=== PATIENT | male | born 1955 | race Caucasian/White ===

== ENCOUNTER → 2023-07-22 13:45 | Outpatient (REF) | payer OTHER, SELFPAY | LOC: RAD 13:45 | PROVIDERS: ATTENDING PHYSICIAN Internal Medicine; FAMILY PHYSICIAN Nurse Practitioner Family | DX: Z13.6 Encounter for screening for cardiovascular disorders (principal) | CPT/HCPCS: 76770 ==

== ENCOUNTER 2024-02-05 16:57 | Inpatient (IN) | payer MEDICARE, OTHER, SELFPAY ==
[2024-02-05] VITALS (36 sets, daily range): BP systolic 125–243; BP diastolic 66–130; BMI 29.0; BMI 28.3
[2024-02-05 12:00] LABS: % Basophils 0.3 % (0-2); % Eosinophils 2.4 % (0-6); % Immature Granulocytes 0.3 % (0-0.5); % Lymphocytes 18.3 % (20.5-51.1); % Monocytes 9.3 % (1.7-9.3); % Neutrophils 69.4 % (42.2-75.2); Absolute Eosinophils 0.3 10^3/uL (0-0.7); Absolute Lymphocytes 2.1 10^3/uL (1.2-3.4); Absolute Monocytes 1.1 10^3/uL (0.1-0.6); Absolute Neutrophils 8.1 10^3/uL (1.4-6.5); Hematocrit 41.8 % (39.0-52.0); Hemoglobin 15.3 g/dL (13.0-18.0); Mean Corp Hgb Conc. 36.6 g/dL (33.0-37.0); Mean Corpuscular Hgb 30.1 pg (27.0-31.0); Mean Corpuscular Volume 82.3 fL (80.0-94.0); Mean Platelet Volume 11.4 fL (7.4-10.4); Nucleated Red Blood Cells % 0 % (-); Platelet Count 221 10^3/uL (130-400); Red Blood Cell Count 5.08 10^6/uL (4.70-6.10); Red Cell Dist. Width 12.9 % (11.5-14.5); White Blood Cell Count 11.7 10^3/uL (4.8-10.8)
[2024-02-05 12:25] LABS: ALT (SGPT) 22 U/L (0-50); AST (SGOT) 28 U/L (17-59); Albumin 4.5 g/dl (3.5-5.0); Alkaline Phosphatase 100 U/L (38-126); Blood Urea Nitrogen 16 mg/dl (9-20); Calcium 9.3 mg/dl (8.4-10.2); Carbon Dioxide 22 mmol/L (22-30); Chloride 106 mmol/L (98-107); Glucose 103 mg/dl (70-99); Potassium 3.9 mmol/L (3.5-5.1); Sodium 139 mmol/L (135-145); Total Bilirubin 1.1 mg/dl (0.2-1.3); Total Protein 6.8 g/dl (6.3-8.2); eGFR > 60.00
--- NOTE | 2024-02-05 13:17 | ED.GENMED ---
History of Present Illness
General
Chief Complaint: Blood Pressure Problem
Time Seen by Provider: 02/05/24 13:17
History of Present Illness
History of Present Illness:
HPI: The patient presents due to concerns of high blood pressure. This is associated with rather significant headaches. He had somewhat of different headache several years ago but does not normally get headaches. He did check his blood pressure
as an outpatient and also at his doctor's office you has been told that he has had high blood pressure readings but he has not been started on any medications. He had markedly elevated blood pressure at the office today and was referred here for
further evaluation. He also is a smoker.
EXAM:
GENERAL: Well appearing in no distress, the patient is markedly hypertensive with systolics of about 220
HEENT: Moist oral mucosa
CARDIOVASCULAR: No murmurs, normal heart rate, regular rhythm, No chest wall tenderness
PULMONARY: No respiratory distress, breath sounds are clear and equal
ABDOMEN: Soft with no peritoneal signs, no tenderness
NEUROLOGIC: Excellent strength all extremities, no coordination deficits
PSYCHIATRIC: Appropriate mental status, normal insight and judgement
EXTREMITIES: Nontender, no edema, moves all extremities equally
SKIN: No rash, no lesions
TIME OF INITIAL ENCOUNTER: 1:20 PM
NUMBER AND COMPLEXITY OF PROBLEMS ADDRESSED AT THE ENCOUNTER
� Chronic conditions affecting care: History of prostate cancer and history of alcohol abuse
� Acute Exacerbation and/or Progression of Chronic Illness: This is an acute problem hypertensive urgency, intracranial pathology,
� Differential Diagnosis includes: Kidney disease, hypertensive urgency, hypertensive emergency,
AMOUNT AND/OR COMPLEXITY OF DATA TO BE REVIEWED AND ANALYZED
� I performed an independent evaluation of and my interpretation is:
EKG: Sinus 57, normal axis, nonspecific ST abnormality
CT: CT head shows no acute abnormality
X-rays:
Laboratory Studies: White blood cell count 11.7, chemistries unremarkable, troponin negative
Other:
� Review of other/old records: I abdominal ultrasound showed relatively unremarkable aorta and iliacs as of July 2023
� Clinical information was obtained by an independent historian: I spoke to the at bedside
� Prescriptions/Medications Considered but not given:
� Further testing considered but not performed:
RISK OF COMPLICATIONS AND/OR MORBIDITY OR MORTALITY OF PATIENT MANAGEMENT
� Social determinants of health affecting care: Lives at home
� Discussion with other providers: Hospitalist, Dr. Santos, for admission at 3:31 PM
� Escalation of care including admission/observation vs risk of discharge considered: The patient's blood pressure is markedly elevated and has had multiple blood pressure elevation readings in the past. Will start
antihypertensives and since his blood pressure is as high as 220 systolic, will give a dose of IV hydralazine. He is a smoker and is at higher risk of CVA�will start losartan. Shortly after the IV hydralazine was given, he had a episode of chest
discomfort and shortness of breath which is since resolved. Repeat blood pressure was 219 and I therefore ordered clonidine (did not use beta-nicole as heart rate was around 60). The patient generally continues to not feel well�I have asked
hospitalist to keep for further management.
Past History
Past History
ED Past Medical History: None and Cancer (Prostatic status post treatment)
ED Past Surgical History: Orthopedic and Urological (Prostatic surgery)
Social History
Tobacco: Smoker
Alcohol: Former
Drug: None
Phy Exam
Physical Exam
Physical Exam:
See HPI
Course
Orders/Labs/Results
Orders:
Orders
02/05/24 11:46
Electrocardiogram (*1) Urgent
Reason for Study: Hypertension, Benign
EKG- Treatment ONCE
02/05/24 11:55
Complete Blood Count/With Diff Urgent
Comprehensive Metabolic Panel Urgent
02/05/24 13:26
CT Head W/o Iv Contrast Urgent
Comment:
Reason For Exam: new HAs w/ severe HTN (SBP 220)
HydrALAZINE [Apresoline] 10 mg IV NOW STA
Losartan [Cozaar] 50 mg PO NOW STA
02/05/24 14:28
EKG [Electrocardiogram (*1)] Urgent
Reason for Study: Chest Pain
02/05/24 14:29
EKG- Treatment ONCE
02/05/24 14:36
Clonidine [Catapres] 0.1 mg PO NOW STA
02/05/24 14:44
Troponin I Urgent
02/05/24 15:55
Add On- LAB Routine
Tests Added?: magnesium
Abnormal Lab Results
02/05/24
11:55
WBC 11.7 H 10^3/uL
(4.8-10.8)
MPV 11.4 H fL
(7.4-10.4)
Absolute Neuts (auto) 8.1 H 10^3/uL
(1.4-6.5)
Absolute Monos (auto) 1.1 H 10^3/uL
(0.1-0.6)
Lymphocytes % 18.3 L %
(20.5-51.1)
Glucose 103 H mg/dl
(70-99)
02/05/24 11:55
02/05/24 11:55
Vital Signs
Initial and Last Documented VS:
Initial Vital Signs
Temp Pulse Resp BP Pulse Ox
98.2 F 61 18 214/110 97
02/05/24 11:41 02/05/24 11:41 02/05/24 11:41 02/05/24 11:41 02/05/24 11:41
Last Documented Vital Signs
Temp Pulse Resp BP Pulse Ox
98.2 F 70 16 180/116 97
02/05/24 11:41 02/05/24 15:45 02/05/24 15:45 02/05/24 15:30 02/05/24 15:45
*Critical Care Note
Total Time (30-74mins, 75-104mins- exclusive of procedures): 45 minutes
comment:
The patient has general unwell feeling including headache. Systolic blood pressures are markedly elevated. We initially gave him hydralazine and shortly after the IV hydralazine was given, was 'gasping for air'. Blood pressure remains elevated.
He was also given oral losartan and clonidine.
ED Attending Note
-
Portions of this chart may have been created with voice recognition software.� Occasional wrong word or��sound alike� substitutions may have occurred due to the inherent limitations of voice recognition software.
Discharge Plan
Departure
Patient Disposition: Admit
Date of Disposition: 02/05/24
Time of Disposition: 15:32
Presentation/result/management discussed w/ accepting MD/DO: Hospitalist
Discharge Problem:
Poor high blood pressure control
Prescriptions:
No Action
acetaminophen [Tylenol Extra Strength] 500 MG tablet
1,000 mg PO PRN PRN (Reason: pain)
naproxen sodium [Aleve] 220 MG tablet
440 mg PO BIDPRN PRN (Reason: pain) Qty: 0 0RF
carbamazepine 200 MG tablet
200 mg PO BID Qty: 60 0RF
Referrals:
Lolly Iqbal CRNP [Family Provider] -
Interventions
Interventions:
*Risk Screen - Suicide Last Done: 02/05/24 11:41
*General Assessment Last Done: 02/05/24 11:41
*Neglect/Abuse Screening Last Done: 02/05/24 11:41
ED- Fall Risk Assessment Last Done: 02/05/24 12:51
*ED COVID-19 Vaccine History Last Done: 02/05/24 12:52
ED- Cardiac Assessment Last Done: 02/05/24 12:52
ED- Neurological Assessment Last Done: 02/05/24 12:52
ED- Pulmonary Assessment Last Done: 02/05/24 12:52
Discharge Date and Time
Print Language: CITIZEN OF [place]
[2024-02-05] MEDS: APRESOLINE 10 MG IV (13:37)
[2024-02-05] MEDS: COZAAR 50 MG PO (13:37)
[2024-02-05] MEDS: CATAPRES 0.1 MG PO (14:40)
[2024-02-05 15:21] LABS: Troponin I < 0.012 ng/ml
--- NOTE | 2024-02-05 15:49 | HPS.HSE ---
Family Physician
-
Family Physician: RYAN Zuluaga
Chief Complaint
-
high blood pressure
History of Present Illness
Mr. Laureano Partida is a 68 yo man with hx prostate CA sent from PCP for elevated blood pressures at the office. He states that he started feeling unwell 2 weeks ago. He felt off with frontal headache. He thought he had a sinus infection. +
congestion and intermittent cough. No fevers. He checked his blood pressure at home with his 's machine and it was in the 200's. He didn't seek medical attention until today when he saw his PCP who sent him to the ER. Patient has had normal
blood pressure readings at prior recent clinic visits within past couple of years.
He reports chest heaviness yesterday and he took aspirin. He also had chest discomfort after given IV hydralazine in the ER and that is now resolved. He also received Losartan and Clonidine. He states he feels weaker than when he came in and a
little lightheaded.
No shortness of breath. No LE swelling. No rash. Eating and drinking OK. He has not started any new medications. No new supplements. No drug use. He smokes 1/2 pack per day and now wants to stop.
Medical History
Past Medical History
Past Medical History: Reports Hypercholesterolemia
Past Surgical History: Reports Urological
Social History
Tobacco: Smoker (1/2 pack per day)
Family History
Family History: Not pertinent
Allergies / Home Medications
Allergies reflects when Allergies were last updated in [employer].
Home Medications with original date entered in [employer]
Allergy/Medication List:
Allergies
Allergy/AdvReac Type Severity Reaction Status Date / Time
Penicillins Allergy Unknown Verified 02/05/24 11:41
Home Medications
acetaminophen 500 mg tablet (Tylenol Extra Strength) 1,000 mg PO Q6HPRN PRN mild pain 06/05/15
ascorbic acid (vitamin C) 500 mg tablet (Vitamin C) 500 mg PO DAILY 02/05/24
atorvastatin 10 mg tablet 10 mg PO HS 02/05/24
cholecalciferol (vitamin D3) 50 mcg (2,000 unit) tablet (Vitamin D3) 50 mcg PO DAILY 02/05/24
cyanocobalamin (vitamin B-12) 1,000 mcg tablet 1,000 mcg PO DAILY 02/05/24
glucosamine sulfate 500 mg tablet (Glucosamine) 500 mg PO DAILYPRN PRN supplement 02/05/24
zinc sulfate 50 mg zinc (220 mg) tablet 50 mg PO DAILY 02/05/24
Review of Systems
-
History Source: Patient
A 12 point ROS was completed and negative except as noted: Yes
Physical Exam
Vital Signs
Vital Signs
Temp Pulse Resp BP Pulse Ox
98.2 F 63 19 219/105 98
02/05/24 11:41 02/05/24 14:40 02/05/24 13:45 02/05/24 14:40 02/05/24 14:15
Physical Exam
General: No Apparent Distress
HEENT: PERRLA (scleral erythema; LIBBY, EOMI)
Respiratory: Clear; No Wheezes
Cardiac: S1/S2 and Regular Rhythm
GI: Soft and Non Tender
Musculoskeletal: No Edema
Skin: Warm and Dry; No Rash
Neuro: AO x 3
Psych: Calm
Laboratory Results
-
02/05/24 11:55
02/05/24 11:55
Laboratory Results
Total Bilirubin 1.1 mg/dl (0.2-1.3) 02/05/24 11:55
AST 28 U/L (17-59) 02/05/24 11:55
ALT 22 U/L (0-50) 02/05/24 11:55
Alkaline Phosphatase 100 U/L (38-126) 02/05/24 11:55
Troponin I < 0.012 ng/ml 02/05/24 14:44
Data Reviewed
-
Diagnostic Radiology: Report Reviewed by me
Lab Data: Labs Reviewed by me
Impression/Plan
-
Mr. Laureano Partida is a 68 yo man with hx prostate CA sent from PCP for elevated blood pressures at the office. He was found to have BP 214/110 associated with headache, admitted for hypertensive urgency and work up of secondary hypertension.
Triage VS: T 98.2, P 61, RR 18, BP 214/110, SpO2 97%
LABS: WBC 11.7, Hg 15.3, PLT 221, Na 139, K+ 3.9, Cl 106, CO2 22, BUN 16, Cr 1.1, Glucose 103, T. Bili 1.1, AST 28, ALT 22, Alk Phos 100, Trop < 0.012
EKG: NSR with PAC's, incomplete RBBB, prolonged QTc [address]
IMPRESSION:
No acute intracranial abnormality.
MAR: Clonidine, Hydralazine and Losartan 50mg
Hypertensive Urgency
-s/p IV hydralazine 10mg , Losartan 50mg and Clonidine 0.1mg in ER
-patient reported shortness of breath and chest pain post Hydralazine that is now resolved
-admit to telemetry
-trend Troponin
-will avoid further standing BP meds this evening as he has already dropped 25%
-standing Losartan starting tomorrow morning
-Clonidine PRN SBP > 180
-trial of Compazine for headache
-TTE
-Nephrology consult for further work up of secondary hypertension
-I have ordered renin/aldosterone ratio
-with report of intermittent chest discomfort may need outpatient cardiac stress testing (or more immediate work-up if recurs in the hospital).
HLD
-ASSISTANT GM OF CONTENT & DELIVERY Statin
DVT PPx Lovenox subQ
FULL CODE
76 minutes spent on patient evaluation, medical deicison making, coordination of care
[2024-02-05] MEDS: COMPAZINE 10 MG IV (16:21)
[2024-02-05] MEDS: REFRESH EYE DROPS (PF) 1 DROPS BOTH EYES (16:25)
--- NOTE | 2024-02-05 16:38 | W.CON.NEPH ---
Consultation
-
Date/Time Consultation Requested: 02/05/24 1630
Date/Time Consultation Performed: 02/05/24 1730
Requesting Provider: Jannie Pulido
Performing Provider: Brigida Duran
Reason for Consultation: HTN urgency
Medical History
-
Chief Complaint: HTN, HERRERA
History of Present Illness:
Mr. Laureano Partida is a 68 yo man with hx prostate CA, ED, HLD on low dose statin was sent from PCP for elevated blood pressures from the office. He states that he started feeling unwell 2-3 weeks ago. He felt off with frontal headache. He thought
he had a sinus infection. + congestion and intermittent cough. No fevers. He checked his blood pressure at home with his 's machine and it was in the 200's. He didn't seek medical attention until today when he saw his PCP who sent him to the
ER. Patient has had normal blood pressure readings at prior recent clinic visits within past couple of years, in Dec visit was high and he reports with orthopaedic visit 6m ago was also high 160s.
He reports chest heaviness yesterday and he took aspirin. He also had chest discomfort after given IV hydralazine in the ER and that is now resolved. He received Losartan and Clonidine. He states he feels weaker than when he came in and a little
lightheaded which present even SERVICES CLERK. SBP now at 190s.
No shortness of breath. No LE swelling. No rash. Eating and drinking OK. He was taking tylenol and high doses of Ibuprofen for HAs. No drug use. He smokes 1/2 pack per day for several years. Mild nausea here, no vomiting or sweating. NO
dysuria. He does not particularly follow low salt diet.
Past Medical History
Prostate ca
ED
HLD
colon polyps
PTSD
colitis
h/o HAs
Past Surgical History: Orthopedic (knee arthrocopy) and Urological (prostate surg)
Social History
Tobacco: Smoker (1/2 Pack daily)
Alcohol: None
Drug: None
Personal:
Living: With Family
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
Family History
no CKD
Family History: Not Pertinent
Allergies / Home Medications
Allergy/AdvReac Type Severity Reaction Status Date / Time
Penicillins Allergy Unknown Verified 02/05/24 11:41
�Medication �Instructions �Recorded �Confirmed �Type
acetaminophen 500 mg tablet 1,000 mg PO Q6HPRN PRN mild pain 06/05/15 02/05/24 History
(Tylenol Extra Strength)
ascorbic acid (vitamin C) 500 mg 500 mg PO DAILY 02/05/24 02/05/24 History
tablet (Vitamin C)
atorvastatin 10 mg tablet 10 mg PO HS 02/05/24 02/05/24 History
cholecalciferol (vitamin D3) 50 50 mcg PO DAILY 02/05/24 02/05/24 History
mcg (2,000 unit) tablet (Vitamin
D3)
cyanocobalamin (vitamin B-12) 1,000 mcg PO DAILY 02/05/24 02/05/24 History
1,000 mcg tablet
glucosamine sulfate 500 mg tablet 500 mg PO DAILYPRN PRN supplement 02/05/24 02/05/24 History
(Glucosamine)
zinc sulfate 50 mg zinc (220 mg) 50 mg PO DAILY 02/05/24 02/05/24 History
tablet
Review of Systems
-
All complete 12 point ROS have been inquired and found negative other than stated in HPI
Physical Exam
Vital Signs
Vital Signs
Temp Pulse Resp BP Pulse Ox
98.6 F 61 14 164/115 98
02/05/24 16:00 02/05/24 16:00 02/05/24 16:00 02/05/24 16:00 02/05/24 16:00
Lab Results
WBC 11.7 10^3/uL (4.8-10.8) H 02/05/24 11:55
RBC 5.08 10^6/uL (4.70-6.10) 02/05/24 11:55
Hgb 15.3 g/dL (13.0-18.0) 02/05/24 11:55
Hct 41.8 % (39.0-52.0) 02/05/24 11:55
Plt Count 221 10^3/uL (130-400) 02/05/24 11:55
Sodium 139 mmol/L (135-145) 02/05/24 11:55
Potassium 3.9 mmol/L (3.5-5.1) 02/05/24 11:55
Chloride 106 mmol/L (98-107) 02/05/24 11:55
Carbon Dioxide 22 mmol/L (22-30) 02/05/24 11:55
BUN 16 mg/dl (9-20) 02/05/24 11:55
Creatinine 1.1 mg/dL (0.7-1.3) 02/05/24 11:55
eGFR > 60.00 02/05/24 11:55
Glucose 103 mg/dl (70-99) H 02/05/24 11:55
Calcium 9.3 mg/dl (8.4-10.2) 02/05/24 11:55
Albumin 4.5 g/dl (3.5-5.0) 02/05/24 11:55
EKG initially: SINUS BRADYCARDIA
POSSIBLE LEFT ATRIAL ENLARGEMENT
INCOMPLETE RIGHT BUNDLE BRANCH BLOCK
NONSPECIFIC T WAVE ABNORMALITY
ABNORMAL ECG
WHEN COMPARED WITH ECG OF 03-JUN-2015 07:01,
NONSPECIFIC T WAVE ABNORMALITY NOW EVIDENT IN INFERIOR LEADS
NONSPECIFIC T WAVE ABNORMALITY NOW EVIDENT IN LATERAL LEADS
Physical Exam
General: Awake, Alert, Oriented, AOx3 and No Distress
HEENT: EOMI, Anicteric, Conjunctivae Clear, Neck Supple and No JVD
Respiratory: Clear, Normal Excursion and Nonlabored Respirations
Cardiac: S1/S2 and Regular Rate/Rhythm
Breast: Deferred by me
Abdomen: Soft, Nontender and Nondistended
Musculoskeletal: No Cyanosis and No Edema
Skin: No Rash
Neuro: Nonfocal/Grossly Intact
Psych: Mood/afflect pleasant, Insight/judgement good and Appropriate
Data Reviewed
-
Radiology: Report Reviewed by me and Discussed with Patient
Labs: Labs Reviewed by me, Discussed with Nurse and Discussed with Patient
Assessment/Plan
-
IMP:
Hypertensive Urgency
HLD
h/p prostate ca
HERRERA
PTSD
h/o colitis
Plan:
A/w recent onset of BP and HERRERA with no h//o HTN
HTN urgency-probably symptomatic with HERRERA
s/p Losartan, clonidine
avoid drastic BP changes, SBP goal to keep over 160 today
nicardine gtt to start per primary
had SOB, CP post hydralazine
agree with starting Losartan tomorrow -titrate dose as needed
may need procardia vs diuretic to add if needed
ARR Ordered per primary
will check renal duplex specially with smoking history., symmetric kidneys in July Aorta US
his cr is 1.1 with in normal range
avoid NSAIDs and quit smoking -d/w pt
d/w nursing
d/w primary
[2024-02-05 17:11] LABS: Magnesium 2.1 mg/dl (1.6-2.3)
[2024-02-05] MEDS: CARDENE 200 IV (18:40)
[2024-02-05 19:12] LABS: INR 1.05; PT 13.7 Sec (11.4-14.6)
--- NOTE | 2024-02-05 19:18 | PTCARENOTE ---
received pt from telem floor , pt NSR on monitor , BP 182/ 100 , pt started on IV Cardene as ordered , pt is currently at 2.5mg his current BP in 162/86, his and daughter in room and updated on plan of care and condition
[2024-02-05 19:26] LABS: Troponin I 0.018 ng/ml
[2024-02-05] MEDS: LOVENOX 40 MG SC (20:28)
[2024-02-05] MEDS: REFRESH EYE DROPS (PF) 1 DROPS OPHTH (20:29)
[2024-02-05] MEDS: LIPITOR 10 MG PO (20:29)
--- NOTE | 2024-02-05 21:00 | PTCARENOTE ---
Resumed care of pt this evening. Received pt on cardene gtt infusing at 2.5 mg/hr via left peripheral IV site. Pt A&Ox3, can move all 4 extremities, and can make needs known. Pt is NSR on tele monitor, has no edema, and palpable pedal pulses. Pt on
RA satting at 96% pulse ox. On auscultation pt lungs sound clear. Pt's abdomen is round, soft, and has active BS. Pt's skin is C/D/I.
--- NOTE | 2024-02-05 22:00 | PTCARENOTE ---
Cardene gtt turned off per protocol.
[2024-02-05] MEDS: REFRESH EYE DROPS (PF) OPHTH (23:13)
[2024-02-06] VITALS (43 sets, daily range): BP systolic 116–190; BP diastolic 66–105; BMI 28.6
--- NOTE | 2024-02-06 04:00 | PTCARENOTE ---
Pt resting comfortably at this time. No changes to report from previous assessment.
[2024-02-06 05:57] LABS: Hematocrit 40.4 % (39.0-52.0); Hemoglobin 14.9 g/dL (13.0-18.0); Mean Corp Hgb Conc. 36.9 g/dL (33.0-37.0); Mean Corpuscular Hgb 30.1 pg (27.0-31.0); Mean Corpuscular Volume 81.6 fL (80.0-94.0); Mean Platelet Volume 11.9 fL (7.4-10.4); Platelet Count 209 10^3/uL (130-400); Red Blood Cell Count 4.95 10^6/uL (4.70-6.10)
[2024-02-06 06:08] LABS: Blood Urea Nitrogen 21 mg/dl (9-20); Calcium 9.1 mg/dl (8.4-10.2); Carbon Dioxide 21 mmol/L (22-30); Chloride 106 mmol/L (98-107); Estimated Creatinine Clearance 60 ml/min; Glucose 94 mg/dl (70-99); Magnesium 2.1 mg/dl (1.6-2.3); Potassium 3.7 mmol/L (3.5-5.1); Sodium 138 mmol/L (135-145); eGFR > 60.00
[2024-02-06 06:19] LABS: Troponin I 0.027 ng/ml
[2024-02-06 06:40] LABS: TSH 1.52 uIU/ml (0.47-4.68)
--- NOTE | 2024-02-06 07:15 | PTCARENOTE ---
VS's downloaded from previous shift [id number]
--- NOTE | 2024-02-06 07:36 | CON.INTV ---
Consultation
Consultation Request
Date/Time Consultation Requested: 02/06/2024-7 AM
Date/Time Consultation Performed: 02/06/2024-7:30 AM
Requesting Provider: Hospitalist
Performing Provider: Dr. Mckeon
Reason for Consultation: Hypertensive emergency
Medical History
-
Chief Complaint: Headache/hypertensive emergency
History of Present Illness:
68-year-old male smoker seen years ago by Dr. Cagle with a history of hyperlipidemia and prostate cancer presented with frontal headaches and severe hypertension unresponsive to hydralazine, losartan and clonidine requiring Cardene
drip-subject scientific research consulted for hypertensive emergency/critical care management 02/06/2024.Blood pressure much improved and headache is slowly resolving. He denies any shortness of breath at rest, chest pain, chest tightness, productive cough, mucus
production, abdominal pain, nausea, vomiting, diarrhea, new weakness, numbness, or leg swelling. He continues to smoke.
Past Medical History
Past Medical History: None (Colitis. Chronic headaches. GERD. Cigarette smoker. Pulmonary nodules-multiple bilateral stable for years. COPD-Gold stage I. Prostate cancer status post prostatectomy 2015. Shoulder reconstruction.)
Social History
Tobacco: Smoker (Off-and-on for 50 years-currently on for the last 6 months-1/2 pack of cigarettes daily)
Alcohol: None
Drug: None
Personal:
Living: With Family
Employment: Retired ([employer])
Occupational Exposures: No known asbestos exposure
Environmental Exposures: No known tuberculosis exposure
Family History
Family History: Other (Father-mesothelioma. Mother-melanoma)
Allergies / Home Medications
Allergies
Allergy/AdvReac Type Severity Reaction Status Date / Time
Penicillins Allergy Unknown Verified 02/05/24 11:41
Home Medications
�Medication �Instructions �Recorded �Confirmed �Last Taken �Type
acetaminophen 500 mg tablet 1,000 mg PO Q6HPRN PRN mild pain 06/05/15 02/05/24 02/05/24 History
(Tylenol Extra Strength)
ascorbic acid (vitamin C) 500 mg 500 mg PO DAILY 02/05/24 02/05/24 02/04/24 History
tablet (Vitamin C)
atorvastatin 10 mg tablet 10 mg PO HS 02/05/24 02/05/24 02/04/24 History
cholecalciferol (vitamin D3) 50 50 mcg PO DAILY 02/05/24 02/05/24 02/04/24 History
mcg (2,000 unit) tablet (Vitamin
D3)
cyanocobalamin (vitamin B-12) 1,000 mcg PO DAILY 02/05/24 02/05/24 02/04/24 History
1,000 mcg tablet
glucosamine sulfate 500 mg tablet 500 mg PO DAILYPRN PRN supplement 02/05/24 02/05/24 Unknown History
(Glucosamine)
ibuprofen 400 mg tablet 400 mg PO Q6HPRN PRN headache 02/05/24 02/05/24 Unknown History
zinc sulfate 50 mg zinc (220 mg) 50 mg PO DAILY 02/05/24 02/05/24 02/04/24 History
tablet
Review of Systems
-
Unable to Obtain full review of systems at this time due to: Other (Per HPI)
Vitals / Labs / Diagnostic Testing
Vital Signs
Temp Pulse Resp BP Pulse Ox
98.1 F 57 23 123/68 97
02/06/24 07:35 02/06/24 04:15 02/06/24 04:15 02/06/24 04:00 02/05/24 21:00
Lab Data
02/06/24 05:38
02/06/24 05:38
Laboratory Results
02/05/24
18:53
PT 13.7
INR 1.05
Diagnostic Testing:
Physical Exam
-
Exam:
Well-nourished and well-developed in no apparent distress
HEENT-atraumatic, normocephalic
Neck-supple, no JVD, no bruit
Heart-regular rate and rhythm-no murmurs, rubs or gallops
Chest-clear to auscultation, no wheezes, crackles
Back-no tenderness
Abdomen-soft, nontender, nondistended, no hepatosplenomegaly
Extremities-no cyanosis, clubbing, edema and good peripheral pulses
Integument-intact, no rashes, lesions or ecchymosis
Neurology-alert and oriented, nonfocal motor and sensory exam
Assessment
-
68-year-old male smoker seen years ago by Dr. Cagle with a history of hyperlipidemia and prostate cancer presented with frontal headaches and severe hypertension unresponsive to hydralazine, losartan and clonidine requiring Cardene
drip-subject scientific research consulted for hypertensive emergency/critical care management 02/06/2024.
Hypertensive emergency-unresponsive to hydralazine, losartan, clonidine necessitating Cardene drip
Headaches related to hypertension
Conditions present prior to admission:
Colitis.
Chronic headaches.
GERD.
Cigarette smoker.
Pulmonary nodules-multiple bilateral stable for years.
COPD-Gold stage I.
Prostate cancer status post prostatectomy 2015.
Shoulder reconstruction.
Plan
Patient will be admitted to medical intensive care
Supplemental oxygen if needed
Monitor for end organ effect of severe hypertension
Labetalol as needed
Begin nicardipine drip
Nitroprusside less attractive with potential for cyanide toxicity especially with renal insufficiency
Nitroglycerin if cardiac issues
Nephrology consultation
Consider workup of secondary causes including renal vascular/primary hyperaldosteronism/Galt's/pheochromocytoma/etc. if hypertension is difficult to control
DVT prophylaxis-on Lovenox
Early nutrition
Early mobilization
Patient was last seen in pulmonary office-Dr. Cagle 10/24/2021 and was instructed to follow back up after follow-up CT for pulmonary nodules-he never followed up-will instruct follow-up after discharge
Critical care statement: A total of 50 minutes of critical care time was provided for this patient today. This includes management of unstable vital signs, evaluation of the patient at bedside, reviewing the patient's pertinent medical records
including radiographs, management of Cardene drip, microbiology, laboratory evaluations, and discussion with primary team, consultants, pharmacy, nutrition, physical therapy, case management, charge nurse, critical care nursing, and respiratory
therapy.
Diagnostic data:
Chest x-ray 02/05/2024-NAD
CT chest 02/03/2021:Reviewed,Demonstrated multiple pulmonary nodules under 8 mmPer millimeter left major fissure�2 mm left lower lob��2 mm right lower lobe��Improved linggular right lower lobe�4 mm right upper lobe��4 mm. Facial right middle lobe�5
mm right middle lobeImproved lingular right lower lobe above the diaphragm..
CT chest 07/2021-stable tiny pulmonary nodules
CT head 02/05/2024-no acute intracranial abnormalities
PFT 10/24/2021-FEV1 3.5-103%, FVC 4.5-105%, TLC 92%, RV 69%, DLCO 62%, DLCO/VA 74%
Data Reviewed
-
PFT: Report reviewed by me
EKG: Report reviewed by me
Radiology: Report reviewed by me
CT Scan: Report reviewed by me
Medical Tests (Nuc Med, Echo etc): Report reviewed by me
Labs: Labs reviewed by me
Old Records: Reviewed
Critical Care Time (in minutes): 50
[2024-02-06] MEDS: REFRESH EYE DROPS (PF) 1 DROPS OPHTH ×3 (07:45→17:41)
[2024-02-06] MEDS: COZAAR 50 MG PO (07:45)
--- NOTE | 2024-02-06 09:31 | PTCARENOTE ---
Complete assessment done and documented. Pt oriented x3, no c/o headache at this time. BP= 175-179/85-90 this morning, keeping systolic goal 160-180 maintained. Cardene drip remains off at this time. HR SR, O2 sat=95% on R/A. Pt ate 95% of his 2 gm
Na diet breakfast. +BSs. Pt just voided 275 ml of yellow urine in urinal. Echo cardiogram being started now bedside.
[2024-02-06] MEDS: TRANDATE 5 MG IV ×2 (11:39→20:09)
--- NOTE | 2024-02-06 11:47 | PTCARENOTE ---
PRN labetalol 5mg iv given for BP 190/97. Dr Wagoner updated and in to see pt.
--- NOTE | 2024-02-06 12:12 | W.PN.NEPH.PH ---
Today's Communication / Plan
-
add procardia,c ont losartan
Assessment/Plan
-
IMP:
Hypertensive Urgency
HLD
h/p prostate ca
HERRERA
PTSD
h/o colitis
Plan:
A/w recent onset of BP and HERRERA with no h//o HTN
HTN urgency-probably symptomatic with HERRERA
off nicardine gtt since last night
will start procardia and cont Losartan
await renal duplex and ARR
avoid drastic BP changes, SBP goal to keep 140 today
monitor cr at 1.3 from 1.1, no further escalation of ARB, check UA for baseline
avoid NSAIDs and nephrotoxins
HR in 60s, sinus sandrine, normal TSH
d/w nursing
d/w primary
-
-
Date of Service: February 06, 2024
CC / HPI / ROS
-
Chief Complaint:
HTN
History of Present Illness:
cr up at 1.3, BUN 21
off nicardine gtt since last night
no fever
Review of Systems:
no cp or sob
improved HERRERA and dizziness
Labs
-
Labs:
WBC 9.0 10^3/uL (4.8-10.8) 02/06/24 05:38
RBC 4.95 10^6/uL (4.70-6.10) 02/06/24 05:38
Hgb 14.9 g/dL (13.0-18.0) 02/06/24 05:38
Hct 40.4 % (39.0-52.0) 02/06/24 05:38
Plt Count 209 10^3/uL (130-400) 02/06/24 05:38
Sodium 138 mmol/L (135-145) 02/06/24 05:38
Potassium 3.7 mmol/L (3.5-5.1) 02/06/24 05:38
Chloride 106 mmol/L (98-107) 02/06/24 05:38
Carbon Dioxide 21 mmol/L (22-30) L 02/06/24 05:38
BUN 21 mg/dl (9-20) H 02/06/24 05:38
Creatinine 1.3 mg/dL (0.7-1.3) 02/06/24 05:38
eGFR > 60.00 02/06/24 05:38
Glucose 94 mg/dl (70-99) 02/06/24 05:38
Calcium 9.1 mg/dl (8.4-10.2) 02/06/24 05:38
Albumin 4.5 g/dl (3.5-5.0) 02/05/24 11:55
Physical Exam
-
Vital Signs:
Vital Signs
Temp Pulse Resp BP Pulse Ox
98.0 F 60 18 190/97 96
02/06/24 11:53 02/06/24 11:39 02/06/24 11:15 02/06/24 11:39 02/06/24 11:15
Cardiovascular:: Regular rate and rhythm
Respiratory:: Bilateral: CTA
Lung Excursion:: Normal
Abdomen:: Nontender and Soft
Extremity Edema:: None: Bilateral:
Van Catheter: No
[2024-02-06] MEDS: PROCARDIA XL (EXTENDED RELEASE) 30 MG PO ×2 (13:12→22:28)
--- NOTE | 2024-02-06 13:17 | PTCARENOTE ---
Pt still with occ elevated BP. Dr Wagoner aware of BP trends. Prcardia XL 30 mg po given now, BP 167/89
[2024-02-06 13:39] LABS: Troponin I < 0.012 ng/ml
--- NOTE | 2024-02-06 13:46 | PTCARENOTE ---
PT OOB to bathroom, stable on feet, Pt able to brush teeth and wash. Pt now sitting in chair, BV=790/88, HR SR with PACs. Tolerating well. Pt encouraged when home to monitor his BP routinely a few times ea day. He does have a home cuff. Troponin was
drawn, results now down <0.012.
--- NOTE | 2024-02-06 13:51 | CON.CAR ---
Addendum entered and electronically signed by Jacoby Guzman MD 02/06/24 17:45:
68-year-old man admitted with hypertensive urgency and troponin of 0.027. Symptoms of headache and systolic blood pressure over 200 mmHg. Now feeling better. Some chest discomfort prior to admission, had been taking nonsteroidals, was transiently
on Cardene and has received IV labetalol.
PMH: Hyperlipidemia, prostate cancer/prostatectomy, presumed hypertension
PSH: Prostatectomy
SH: Ongoing smoker, no alcohol, , retired
FH: Noncontributory
Allergies penicillins
Current medications: Atorvastatin 10 mg at bedtime, losartan 50 mg a day, nifedipine ER 30 mg a day
167/89, pulse 62, resp rate 16, no distress, head neck exam unremarkable, lungs are clear, no obvious murmur, JVD, carotids okay, abdomen benign extremities without clubbing cyanosis or edema neuro, musculoskeletal, integumentary all intact's
Chest x-ray: NAD
ECG: Sinus rhythm left atrial enlargement incomplete right bundle branch block PAC, borderline QT
Troponin 0.028
Echo: Moderate LVH, no significant valvular heart disease EF 55-60%
Assessment:
HTN urgency
Nonsustained ventricular tachycardia
HLD
Prostate CA s/p prostatectomy 2015
Tobacco use
Pulmonary nodules
PTSD
Plan:
He presented with hypertensive urgency with a detectable troponin. Currently, blood pressure is still above target but much better than admission and he is no longer symptomatic. He is no longer on Cardene and has not received further clonidine or
further labetalol current regimen is losartan 50 mg daily and nifedipine XL 30 mg daily.
Antihypertensives to be titrated while in hospital and then further fine-tuned as needed as outpatient.
He had an episode of nonsustained VT and 1 troponin was detectable. He will need an outpatient sestamibi study. He had moderate LVH on echo and so imaging is required. Given his risk profile and detectable troponin, will add aspirin 81 mg daily
in a.m. until stress test has been performed.
Would like to add a beta-nicole if heart rate will tolerate, will follow for now.
Original Note:
Consultation
Consultation Request
Date/Time Consultation Performed: 02/06/24
Requesting Provider: Dr. Pérez
Performing Provider: Elizabeth Ann PA-C for Dr. AMA Guzman
Reason for Consultation: HTN urgency
Medical History
-
Chief Complaint: headaches
History of Present Illness:
Patient is a 68-year-old male with past medical history of hyperlipidemia, prostate cancer status post prostatectomy, ongoing tobacco use who presented to emergency room due to complaints of headaches over the last several weeks. He reports
headaches were mostly above his eyes, and had some pain in his neck as well. He initially thought he had allergies or a sinus infection. He had taken his blood pressure at home which she reports showed a systolic in the 200s. He was then seen by
his primary and sent to the ER. On arrival blood pressures were noted to be significantly elevated. He had been taking NSAIDs at tylenol at home for headaches. He reported some chest heaviness at home yesterday and took asa. He was given IV
hydralazine in ER and felt SOB and chest heaviness. Also given losartan and clonidine. He was then started on cardene. Weaned off cardene this AM. Required 1 dose of IV labetalol 5mg. currently on losartan and procardia. He reports prior elevated
BPs were felt to be due to white coat hypertension. trops within normal range.
PMH:
HLD
Prostate CA s/p prostatectomy
Tobacco use
Past Medical History
Past Medical History: Other (in HPI)
Social History
Tobacco: Smoker
Alcohol: None
Personal:
Living: With Family
Employment: Retired
Family History
Family History: Reviewed & Not Pertinent
Allergies / Home Medications
Allergy/AdvReac Type Severity Reaction Status Date / Time
Penicillins Allergy Unknown Verified 02/05/24 11:41
�Medication �Instructions �Recorded �Confirmed �Type
acetaminophen 500 mg tablet 1,000 mg PO Q6HPRN PRN mild pain 06/05/15 02/05/24 History
(Tylenol Extra Strength)
ascorbic acid (vitamin C) 500 mg 500 mg PO DAILY Supplement 02/05/24 02/05/24 History
tablet (Vitamin C)
atorvastatin 10 mg tablet 10 mg PO HS High Cholesterol 02/05/24 02/05/24 History
cholecalciferol (vitamin D3) 50 50 mcg PO DAILY Supplement 02/05/24 02/05/24 History
mcg (2,000 unit) tablet (Vitamin
D3)
cyanocobalamin (vitamin B-12) 1,000 mcg PO DAILY Supplement 02/05/24 02/05/24 History
1,000 mcg tablet
glucosamine sulfate 500 mg tablet 500 mg PO DAILYPRN PRN supplement 02/05/24 02/05/24 History
(Glucosamine)
ibuprofen 400 mg tablet 400 mg PO Q6HPRN PRN headache 02/05/24 02/05/24 History
zinc sulfate 50 mg zinc (220 mg) 50 mg PO DAILY Supplement 02/05/24 02/05/24 History
tablet
Review of Systems
-
History Source: Patient and Family
All other systems: Negative unless noted
Physical Exam
Vital Signs
Temp Pulse Resp BP Pulse Ox
98.0 F 62 15 167/89 96
02/06/24 11:53 02/06/24 13:12 02/06/24 13:00 02/06/24 13:12 02/06/24 13:00
Lab Results
02/06/24 05:38
02/06/24 05:38
Troponin I < 0.012 ng/ml D 02/06/24 12:47
Physical Exam
General: No Apparent Distress, Comfortable and Other (sitting in chair)
HEENT: Normocephalic, Anicteric and Moist Mucous Membranes
Respiratory: Clear and Non Labored Respirations
Cardiac: S1/S2 and Regular Rhythm
GI: Soft, Non Tender, Non Distended and Normal Bowel Sounds
Musculoskeletal: No Clubbing, No Cyanosis and No Edema
Skin: Warm and Dry
Neuro: AO x 3
Impression / Plan
-
Primary Club Waiter/Waitress: None prior to admission
Assessment:
Presentation with headaches
HTN urgency
HLD
Prostate CA s/p prostatectomy 2015
Tobacco use
Pulmonary nodules
ECHO 02/06/24: pending
Plan:
-Patient presented with headaches for ~2 weeks. with hypertensive urgency on arrival to ER
-BPs improving on losartan 50mg daily, nifedipine 30mg daily. did require IV labetalol earlier today as was transitioned off cardene, however unclear if will be able to go on standing dose given relative bradycardia at baseline - HRs 40-60s by
review of tele. slowly bring BP down
-head CT and CXR without acute abnormality.
-renal artery US pending
-echo pending
-Cr up slightly to 1.3 today from 1.1. nephro following. UA negative
-avoid NSAIDs
-TSH WNL
-smoking cessation
-EKG SR with incomplete RBBB and NSSTS. trops within normal range
-consideration for OP ischemic evaluation as reported some chest heaviness yesterday in setting of elevated BP and with risk factors. no chest discomfort today.
-d/w nursing. d/w family at bedside
Data Reviewed
-
EKG: Tracing Personally Visualized and interpreted
Radiology: Report Reviewed by me
CT Scan: Report Reviewed by me
Medical Tests (Nuc Med, Echo etc): Report Reviewed by me
Labs: Labs Reviewed by me
Old Records: Reviewed
--- NOTE | 2024-02-06 14:03 | W.PN.HOSP.TC ---
Today's Communication/Plan
-
Cardio consult
Assessment / Plan
Assessment / Plan
Mr. Laureano Partida is a 68 yo man with hx prostate CA sent from PCP for elevated blood pressures at the office. He was found to have BP 214/110 associated with headache, admitted for hypertensive urgency and work up of secondary hypertension.
Triage VS: T 98.2, P 61, RR 18, BP 214/110-->167/89, SpO2 97%
LABS: WBC 11.7-->9.0, Hg 15.3, PLT 221, Na 139, K+ 3.9, Cl 106, CO2 22, BUN 16, Cr 1.1, Glucose 103, T. Bili 1.1, AST 28, ALT 22, Alk Phos 100, Trop < 0.012
EKG: NSR with PAC's, incomplete RBBB, prolonged QTc [address]
IMPRESSION:
No acute intracranial abnormality.
MAR: Clonidine, Hydralazine and Losartan 50mg
Hypertensive Urgency
-s/p IV hydralazine 10mg , Losartan 50mg and Clonidine 0.1mg in ER
-patient reported shortness of breath and chest pain post Hydralazine that is now resolved
-admit to telemetry
- Troponin peaked 0.027
-will avoid further standing BP meds this evening as he has already dropped 25%
-standing Losartan, Procardia XL added by nephro
-Clonidine PRN SBP > 180
-trial of Compazine for headache
-TTE
-Nephrology consult for further work up of secondary hypertension
renin/aldosterone ratio
-EKG 02/04: SINUS BRADYCARDIA
POSSIBLE LEFT ATRIAL ENLARGEMENT
INCOMPLETE RIGHT BUNDLE BRANCH BLOCK
NONSPECIFIC T WAVE ABNORMALITY
ABNORMAL ECG
WHEN COMPARED WITH ECG OF 03-JUN-2015 07:01,
NONSPECIFIC T WAVE ABNORMALITY NOW EVIDENT IN INFERIOR LEADS
NONSPECIFIC T WAVE ABNORMALITY NOW EVIDENT IN LATERAL LEADS
HLD
-SALESPERSON ART OBJECTS Statin
DVT PPx Lovenox subQ
with mild Trop leak and abn EKG, will consult cardio. Pt's has seen [facility] in past and they request his group
FULL CODE
Consider transfer OOICU pending BP and symptoms
Anticipated Discharge: 24 - 48 hours
Subjective/Interval History
-
Date of Service: February 06, 2024
States he felt like his head was going to explode when he first came in, now doing much better
Objective Data
-
Labs:
Laboratory Results
02/06/24
05:38
WBC 9.0
Hgb 14.9
Hct 40.4
Plt Count 209
Sodium 138
Potassium 3.7
Chloride 106
Carbon Dioxide 21 L
BUN 21 H
Creatinine 1.3
Glucose 94
Calcium 9.1
Vital Signs:
Vital Signs
Temp Pulse Resp BP Pulse Ox
98.0 F 62 15 167/89 96
02/06/24 11:53 02/06/24 13:12 02/06/24 13:00 02/06/24 13:12 02/06/24 13:00
I&O
02/05/24 02/06/24 02/07/24
06:59 06:59 06:59
Intake Total 350 / 350
Output Total 275 / 275
Balance 75 / 75
Review of Systems
-
History Source: Patient and Family ( and dgt in room)
Constitutional: Denies Fever
EENT: Reports No Symptoms Reported
Respiratory: Reports No Symptoms; Denies Cough
Cardiac: Reports No Symptoms; Denies Chest Pain
Abdomen/GI: Reports No Symptoms
Genitourinary: Reports No Symptoms
Musculoskeletal: Reports No Symptoms
Neuro: Denies Headache (resolved)
Physical Exam
-
General: Well Developed, Well Nourished and No Apparent Distress
HEENT: Normocephalic, Atraumatic and Moist Mucous Membranes
Respiratory: Clear to Auscultation; Negative Wheezes, Rales or Rhonchi
Cardiac: Regular Rhythm and S1/S2
GI: Soft, Nontender and Nondistended
Musculoskeletal: No Clubbing, No Cyanosis and No Edema
Neuro: Awake, Alert and Oriented
Psych: Calm
[2024-02-06] MEDS: TYLENOL 1000 MG PO (15:57)
--- NOTE | 2024-02-06 16:17 | PTCARENOTE ---
Addendum entered by Rose Monte RN 02/06/24 17:25:
pt had an 11 beat of 'VT', asymptomatic
Original Note:
Pt back to bed, while resting, pt had an 11 beat of SVT, asymptomatic. Elizabeth Ann, [employer] updated and shown strip. No change in tx at this time. BP 139/82. Tylenol 1000mg po given prn for L chronic shoulder pain.
[2024-02-06] MEDS: LOVENOX 40 MG SC (17:40)
[2024-02-06 18:04] LABS: Urine Albumin Negative (Neg - Trace); Urine Bilirubin Negative (Negative); Urine Character Clear (Clear); Urine Color Yellow; Urine Glucose Negative (Negative); Urine Ketone Negative (Negative); Urine Leukocyte Negative (Negative); Urine Nitrite Negative (Negative); Urine Occult Blood Negative (Negative); Urine Urobilinogen Negative (Neg - 1+)
--- NOTE | 2024-02-06 18:19 | PTCARENOTE ---
Pt walked the whole perimeter of ICU/IMU, with this RN and portable monitor, tolerated well. Now back OOB to chair. Pt seen by Dr AMA Guzman.
--- NOTE | 2024-02-06 20:00 | PTCARENOTE ---
Resumed care of pt this evening. Received pt A&Ox3, moves all 4 extremities, and can make needs known. Pt is in NSR on tele monitor, has trace edema on B/L lower extremities, and has palpable pedal pulses. Pt on RA satting at 95% pulse ox. On
auscultation pt lungs sound diminished at the bases but is otherwise clear. Pt's abdomen is round, soft, and has +BS. Pt voiding yellow colored urine in urinal. Skin is C/D/I.
--- NOTE | 2024-02-06 22:00 | PTCARENOTE ---
PRN dose of labetalol administered by this RN for elevated BP. Pt c/o new trace edema on B/L lower extremities, and a mild headache.
[2024-02-06] MEDS: LIPITOR 10 MG PO (22:28)
[2024-02-07] VITALS (32 sets, daily range): BP systolic 118–203; BP diastolic 78–107; BMI 28.6
[2024-02-07] MEDS: REFRESH EYE DROPS (PF) OPHTH (00:36)
[2024-02-07] MEDS: TRANDATE 5 MG IV ×4 (03:30→21:21)
--- NOTE | 2024-02-07 05:00 | PTCARENOTE ---
Pt requiring additional PRN labetalol dose for elevated BP.
[2024-02-07 05:59] LABS: Hematocrit 41.1 % (39.0-52.0); Mean Corp Hgb Conc. 36.5 g/dL (33.0-37.0); Mean Corpuscular Hgb 30.8 pg (27.0-31.0); Mean Corpuscular Volume 84.4 fL (80.0-94.0); Mean Platelet Volume 11.9 fL (7.4-10.4); Platelet Count 197 10^3/uL (130-400); Red Blood Cell Count 4.87 10^6/uL (4.70-6.10); Red Cell Dist. Width 12.9 % (11.5-14.5); White Blood Cell Count 8.8 10^3/uL (4.8-10.8)
[2024-02-07 06:22] LABS: Blood Urea Nitrogen 21 mg/dl (9-20); Carbon Dioxide 21 mmol/L (22-30); Chloride 106 mmol/L (98-107); Estimated Creatinine Clearance 60 ml/min; Glucose 103 mg/dl (70-99); Potassium 3.6 mmol/L (3.5-5.1); Sodium 140 mmol/L (135-145); eGFR > 60.00
--- NOTE | 2024-02-07 07:39 | W.PN.INTV ---
Today's Communication / Plan
Recommendations
Wean Cardene
Oral antihypertensives
Nephrology and cardiology evaluation ongoing
Transfer out of ICU-call pulmonary if respiratory issues arise
Assessment
-
68-year-old male smoker seen years ago by Dr. Cagle with a history of hyperlipidemia and prostate cancer presented with frontal headaches and severe hypertension unresponsive to hydralazine, losartan and clonidine requiring Cardene
drip-associate programmer analyst consulted for hypertensive emergency/critical care management 02/06/2024.
Hypertensive emergency-unresponsive to hydralazine, losartan, clonidine necessitating Cardene drip
Headaches related to hypertension
Nonsustained ventricular tachycardia
Conditions present prior to admission:
Colitis.
Chronic headaches.
GERD.
Cigarette smoker.
Pulmonary nodules-multiple bilateral stable for years.
COPD-Gold stage I.
Prostate cancer status post prostatectomy 2015.
Shoulder reconstruction.
Plan
Hemodynamics have improved-still quite hypertensive
Supplemental oxygen if needed
Incentive spirometry
Continue to monitor for end organ effect of severe hypertension
Labetalol as needed
Cardene drip wean
Nitroprusside less attractive with potential for cyanide toxicity especially with renal insufficiency
Nitroglycerin if cardiac issues
Nephrology consultation
Consider workup of secondary causes including renal vascular/primary hyperaldosteronism/[place]'s/pheochromocytoma/etc. if hypertension is difficult to control
Troponin trend
Cardiology evaluation noted-correspondence reviewed
Patient will need outpatient sestamibi study
Aspirin added
Beta-nicole would like to be added as well
DVT prophylaxis-on Lovenox
Nutrition
Begin ambulation
If patient able to be weaned off Cardene and hemodynamics improved then transfer out of ICU-call pulmonary if respiratory issues arise
Patient was last seen in pulmonary office-Dr. Cagle 10/24/2021 and was instructed to follow back up after follow-up CT for pulmonary nodules-he never followed up-will instruct follow-up after discharge
Critical care statement: A total of 38 minutes of critical care time was provided for this patient today. This includes management of unstable vital signs, evaluation of the patient at bedside, reviewing the patient's pertinent medical records
including radiographs, management of Cardene drip, microbiology, laboratory evaluations, and discussion with primary team, consultants, pharmacy, nutrition, physical therapy, case management, charge nurse, critical care nursing, and respiratory
therapy.
Diagnostic data:
Chest x-ray 02/05/2024-NAD
CT chest 02/03/2021:Reviewed,Demonstrated multiple pulmonary nodules under 8 mmPer millimeter left major fissure�2 mm left lower lob��2 mm right lower lobe��Improved linggular right lower lobe�4 mm right upper lobe��4 mm. Facial right middle lobe�5
mm right middle lobeImproved lingular right lower lobe above the diaphragm..
CT chest 07/2021-stable tiny pulmonary nodules
CT head 02/05/2024-no acute intracranial abnormalities
PFT 10/24/2021-FEV1 3.5-103%, FVC 4.5-105%, TLC 92%, RV 69%, DLCO 62%, DLCO/VA 74%
Subjective Dataa
Subjective Data
Date of Service:
Date of Service: February 07, 2024
Chief Complaint: Plastics Process Hand Follow Up and Pulmonary Follow Up
Subjective:
Complains of headache returning, no complaints of shortness of breath, chest pain, chest congestion, productive cough, abdominal pain, nausea, vomiting, weakness, or leg swelling
Review of Systems
General: Other (Per HPI)
Objective Data
Data Reviewed
Vital Signs / I&O / Oxygen:
Vital Signs
Temp Pulse Resp BP Pulse Ox
98.3 F 59 17 166/92 95
02/07/24 05:41 02/07/24 05:45 02/07/24 05:45 02/07/24 05:30 02/07/24 05:45
Intake and Output
02/06/24 02/07/24 02/08/24
06:59 06:59 06:59
Intake Total 1200 / 1200
Output Total 2275 / 2275
Balance -1075 / -1075
SaO2 95
Physical Exam
General: Respiratory Distress (n) and Comfortable
HEENT: Normocephalic, Anicteric and Moist Mucous Membranes
Cardiovascular: Regular Rhythm
Respiratory: Wheeze (n), Crackles (n), Rhonchi (n), Non-Labored Respirations, Accessory Resp Muscle Use (n) and Stridor (n)
GI: Soft, Non Distended and Non Tender
Neurology: Awake, Alert and No Motor Deficits
Skin: Warm, Good Color, Cyanosis (n), Jaundice (n) and Rash (n)
Labs/Micro/Reports
Lab Data
02/07/24 05:40
02/07/24 05:40
[2024-02-07] MEDS: REFRESH EYE DROPS (PF) 1 DROPS OPHTH ×4 (07:59→19:50)
[2024-02-07] MEDS: COZAAR 50 MG PO (07:59)
[2024-02-07] MEDS: PROCARDIA XL (EXTENDED RELEASE) 30 MG PO ×2 (07:59→19:50)
[2024-02-07] MEDS: TYLENOL 1000 MG PO ×2 (08:03→21:21)
--- NOTE | 2024-02-07 09:04 | W.PN.NEPH.PH ---
Today's Communication / Plan
-
change arb
Assessment/Plan
-
IMP:
Hypertensive Urgency
HLD
h/p prostate ca
HERRERA
PTSD
h/o colitis
Plan:
check metanephrines/catecholamines
change to full dose valsartan
continue procardia
eventual beta nicole, can increase CCB if pulse slow
follow BMP
-
-
Date of Service: February 07, 2024
CC / HPI / ROS
-
Chief Complaint:
HTN
History of Present Illness:
cr stable at 1.3, BUN 21
off nicardine gtt
BP in the 160s
no fever
Review of Systems:
no cp or sob
Labs
-
Labs:
WBC 8.8 10^3/uL (4.8-10.8) 02/07/24 05:40
RBC 4.87 10^6/uL (4.70-6.10) 02/07/24 05:40
Hgb 15.0 g/dL (13.0-18.0) 02/07/24 05:40
Hct 41.1 % (39.0-52.0) 02/07/24 05:40
Plt Count 197 10^3/uL (130-400) 02/07/24 05:40
Sodium 140 mmol/L (135-145) 02/07/24 05:40
Potassium 3.6 mmol/L (3.5-5.1) 02/07/24 05:40
Chloride 106 mmol/L (98-107) 02/07/24 05:40
Carbon Dioxide 21 mmol/L (22-30) L 02/07/24 05:40
BUN 21 mg/dl (9-20) H 02/07/24 05:40
Creatinine 1.3 mg/dL (0.7-1.3) 02/07/24 05:40
eGFR > 60.00 02/07/24 05:40
Glucose 103 mg/dl (70-99) H 02/07/24 05:40
Calcium 9.0 mg/dl (8.4-10.2) 02/07/24 05:40
Albumin 4.5 g/dl (3.5-5.0) 02/05/24 11:55
Physical Exam
-
Vital Signs:
Vital Signs
Temp Pulse Resp BP Pulse Ox
97.9 F 65 17 164/98 95
02/07/24 07:57 02/07/24 07:59 02/07/24 05:45 02/07/24 07:59 02/07/24 05:45
Cardiovascular:: Regular rate and rhythm
Respiratory:: Bilateral: CTA
Lung Excursion:: Normal
Abdomen:: Nontender and Soft
Bowel Sounds:: Normal
Extremity Edema:: None: Bilateral:
--- NOTE | 2024-02-07 09:53 | W.PN.CARDCBS ---
Addendum entered and electronically signed by Jacoby Guzman MD 02/07/24 12:36:
Admitted with hypertensive urgency and headache on 02/04 with minimally detectable troponin, episode of nonsustained VT, and moderate LVH on echo.
Current medications: Enoxaparin 40 mg a day, nifedipine XL 30 mg twice daily, valsartan 160 mg twice daily
PMH: Hyperlipidemia, prostate cancer
179/92, pulse 60, head neck exam unremarkable, no distress, lungs clear regular rate and rhythm without murmurs, abdomen benign extremities without clubbing cyanosis or edema, distal pulses intact
Telemetry: No further VT
Hemoglobin 15.0, white count 8.8, platelets 197, BUN and creatinine 21 and 1.3, potassium 3.6
Renal arterial Doppler cannot exclude proximal right renal artery stenosis
Impression:
HTN urgency
HLD
Prostate CA s/p prostatectomy 2015
Tobacco use
Pulmonary nodules
NSVT
Plan:
Blood pressure still above target but substantially improved, ARB has been changed from losartan to high-dose valsartan, and nifedipine has been doubled. Given nonsustained ventricular tachycardia, will attempt to add low-dose metoprolol ER 12.5 mg
a day which hopefully will not produce symptomatic bradycardia.
Okay to leave ICU.
We will set up outpatient sestamibi study and outpatient follow-up.
Anticipate discharge in 24 to 48 hours.
Original Note:
Today's Communication / Plan
-
add toprol. valsartan doubled by nephrology. continue BP mgmt
for OP stress test
Impression / Plan
-
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
Assessment:
Presentation with headaches
HTN urgency
HLD
Prostate CA s/p prostatectomy 2015
Tobacco use
Pulmonary nodules
NSVT
ECHO 02/06/24: EF 55 to 60%, moderate concentric LVH, no significant valve disease
Plan:
-Presented with headaches and hypertensive urgency. head CT and CXR without acute abnormality.
-Continue valsartan, nifedipine. Given episode of NSVT yesterday and stable heart rates in the 60s on review of telemetry overnight, will add Toprol 12.5 mg daily. Discussed with nephrology and nursing
-He reports some lower extremity edema overnight. Would consider eventual addition of diuretic
-Suspicion by renal artery ultrasound for proximal right renal artery stenosis
-Echocardiogram reviewed with patient at bedside 02/06. EF preserved.
-Given NSVT and some chest heaviness in the setting of hypertension, will plan for outpatient stress test. Trops were detectable but within normal range.
-avoid NSAIDs
-smoking cessation
-Outpatient cardiac follow-up arranged
Progress Note - Hadoop Admin
Subjective
Date of Service: February 07, 2024
Denies chest pain, shortness of breath. Reports some lower extremity edema overnight and some headache this morning
Objective
Labs:
02/07/24 05:40
02/07/24 05:40
Labs
Hgb 15.0 g/dL (13.0-18.0) 02/07/24 05:40
Hct 41.1 % (39.0-52.0) 02/07/24 05:40
Plt Count 197 10^3/uL (130-400) 02/07/24 05:40
PT 13.7 Sec (11.4-14.6) 02/05/24 18:53
INR 1.05 02/05/24 18:53
Sodium 140 mmol/L (135-145) 02/07/24 05:40
Potassium 3.6 mmol/L (3.5-5.1) 02/07/24 05:40
BUN 21 mg/dl (9-20) H 02/07/24 05:40
Creatinine 1.3 mg/dL (0.7-1.3) 02/07/24 05:40
Glucose 103 mg/dl (70-99) H 02/07/24 05:40
Troponins
02/05/24 02/05/24 02/06/24
14:44 18:53 05:38
Troponin I < 0.012 0.018 D 0.027
02/06/24
12:47
Troponin I < 0.012 D
Vital Signs and I&O:
Vital Signs
Temp Pulse Resp BP Pulse Ox
97.9 F 65 17 164/98 95
02/07/24 07:57 02/07/24 07:59 02/07/24 05:45 02/07/24 07:59 02/07/24 05:45
Vital Signs
Temp Pulse Resp BP Pulse Ox
97.9 F 65 17 164/98 95
02/07/24 07:57 02/07/24 07:59 02/07/24 05:45 02/07/24 07:59 02/07/24 05:45
Intake & Output
02/05/24 02/06/24 02/07/24 02/08/24
07:59 07:59 07:59 07:59
Intake Total 1200 / 1200
Output Total 2275 / 2275
Balance -1075 / -1075
Physical Exam
Physical Exam
GEN: No distress, awake, alert, oriented x3
HEENT: supple, anicteric, mmm, eomi
LUNGS: CTA anterolaterally, no wheezes/rales
CV: Reg, S1/S2, no murmur
ABD: soft, BS+, NT/ND
EXT: No cyanosis, clubbing, edema
NEURO: Gross non-focal
SKIN: Warm, pink, dry. No rash
[2024-02-07] MEDS: TOPROL XL 12.5 MG PO (10:18)
--- NOTE | 2024-02-07 10:31 | PTCARENOTE ---
recd handoff at bedside 0715, no gtts, VS noted. For oral am meds, pt aware of plans for the day. Seen by Dr. Sidhu, cardiology group, Dr. Mckeon. Tele orders obtained, awaiting bed. lopressor dose added so no PRN med for BP needed. see filed VS.
HERRERA and L shoulder discomfort relieved with tylenol dose as ordered.
--- NOTE | 2024-02-07 10:39 | CM ---
Cm reviewed medical records. CM met with patient in room. Patient confirmed demographics. Patient lives independently with . Patient denies history of SNF, VN or DME. Patient has active medication coverage and uses [facility] for medication services.
Patient is active with his PCP.
PLAN:home no needs.
--- NOTE | 2024-02-07 12:35 | PTCARENOTE ---
med with PRN labetalol after review with pharmacy about timing/peak. pt aware. family visiting. notes mild HERRERA symptoms. call akers in reach. OOB in recliner.
--- NOTE | 2024-02-07 13:06 | PTCARENOTE ---
BP difference between arms noted. Right arm (used so far today for all readings) 178/88, Left arm (which pt reported was previously higher than R) 131/94. Presently resting in bed, family visiting. HERRERA symptoms presently mild, notes no need for
PRN pain med at this time.
--- NOTE | 2024-02-07 13:36 | W.PN.HOSP.TC ---
Today's Communication/Plan
-
transfer to tele
follow BP next 24 hrs and if continues to do well, consider DC to follow
Assessment / Plan
Assessment / Plan
Mr. Laureano Partida is a 68 yo man with hx prostate CA sent from PCP for elevated blood pressures at the office. He was found to have BP 214/110 associated with headache, admitted for hypertensive urgency and work up of secondary hypertension.
Triage VS: T 98.2, P 61, RR 18, BP 214/110-->167/89, SpO2 97%
LABS: WBC 11.7-->9.0, Hg 15.3, PLT 221, Na 139, K+ 3.9, Cl 106, CO2 22, BUN 16, Cr 1.1, Glucose 103, T. Bili 1.1, AST 28, ALT 22, Alk Phos 100, Trop < 0.012
EKG: NSR with PAC's, incomplete RBBB, prolonged QTc [address]
IMPRESSION:
No acute intracranial abnormality.
MAR: Clonidine, Hydralazine and Losartan 50mg
Hypertensive Urgency
-s/p IV hydralazine 10mg , Losartan 50mg and Clonidine 0.1mg in ER
02/06 on Procardia XL 30 mg bid, Diovan 160 mg daily and Toprol XL 12.5 daily
-patient reported shortness of breath and chest pain post Hydralazine that is now resolved
-admit to telemetry
- Troponin peaked 0.027
-will avoid further standing BP meds this evening as he has already dropped 25%
-standing Losartan, Procardia XL added by nephro
-Clonidine PRN SBP > 180
-trial of Compazine for headache
-TTE
-Nephrology consult for further work up of secondary hypertension
renin/aldosterone ratio
-EKG 02/04: SINUS BRADYCARDIA
POSSIBLE LEFT ATRIAL ENLARGEMENT
INCOMPLETE RIGHT BUNDLE BRANCH BLOCK
NONSPECIFIC T WAVE ABNORMALITY
ABNORMAL ECG
WHEN COMPARED WITH ECG OF 03-JUN-2015 07:01,
NONSPECIFIC T WAVE ABNORMALITY NOW EVIDENT IN INFERIOR LEADS
NONSPECIFIC T WAVE ABNORMALITY NOW EVIDENT IN LATERAL LEADS
HLD
-TECHNICAL APPLICATIONS SPECIALIST Statin
DVT PPx Lovenox subQ
with mild Trop leak and abn EKG, appreciate consult cardio. Pt's has seen Hien in past and they request his group
FULL CODE
transfer OOICU
Anticipated Discharge: Within 24 hours
Subjective/Interval History
-
Date of Service: February 07, 2024
Awake, alert, headache resolved
Objective Data
-
Labs:
Laboratory Results
02/07/24
05:40
WBC 8.8
Hgb 15.0
Hct 41.1
Plt Count 197
Sodium 140
Potassium 3.6
Chloride 106
Carbon Dioxide 21 L
BUN 21 H
Creatinine 1.3
Glucose 103 H
Calcium 9.0
Vital Signs:
Vital Signs
Temp Pulse Resp BP Pulse Ox
97.6 F 60 11 131/94 96
02/07/24 11:23 02/07/24 13:00 02/07/24 13:00 02/07/24 12:58 02/07/24 08:30
I&O
02/06/24 02/07/24 02/08/24
06:59 06:59 06:59
Intake Total 1200 / 1200 480 / 480
Output Total 2275 / 2275
Balance -1075 / -1075 480 / 480
Review of Systems
-
History Source: Patient, Physician and Coordinated Provider
Constitutional: Denies Fever
EENT: Reports No Symptoms Reported
Respiratory: Reports No Symptoms; Denies Cough
Cardiac: Reports No Symptoms; Denies Chest Pain
Abdomen/GI: Reports No Symptoms
Genitourinary: Reports No Symptoms
Musculoskeletal: Reports No Symptoms
Neuro: Denies Headache (resolved)
Physical Exam
-
General: Well Developed, Well Nourished and No Apparent Distress
HEENT: Normocephalic, Atraumatic and Moist Mucous Membranes
Respiratory: Clear to Auscultation; Negative Wheezes, Rales or Rhonchi
Cardiac: Regular Rhythm and S1/S2
GI: Soft, Nontender and Nondistended
Musculoskeletal: No Clubbing, No Cyanosis and No Edema
Neuro: Awake, Alert and Oriented
Psych: Calm
--- NOTE | 2024-02-07 16:05 | TRANSFER ---
ultrasound at bedside in ICU room 3366 completed. transferred by WC to new room, 401-02, settled. handoff to next RN. discussion with MDs Elisa and Thomas, will use R arm only for BP. remains on tele in good spirits.
--- NOTE | 2024-02-07 17:24 | PTCARENOTE ---
Patient received from the ICU into room 401-02. Oriented to room, use of call akers and bed and television controls. Patient verbalizes understanding of all teaching. Patient's BP taken in right arm as per cardiology. 170/80. Patient denies
complaints. Resting comfortably in bed at this time and visiting with family.
[2024-02-07] MEDS: LOVENOX 40 MG SC (18:03)
[2024-02-07] MEDS: DIOVAN 160 MG PO (19:49)
[2024-02-07] MEDS: LIPITOR 10 MG PO (19:50)
[2024-02-08] VITALS (7 sets, daily range): BP systolic 156–175; BP diastolic 87–94
[2024-02-08 05:55] LABS: Blood Urea Nitrogen 20 mg/dl (9-20); Calcium 9.1 mg/dl (8.4-10.2); Carbon Dioxide 25 mmol/L (22-30); Chloride 106 mmol/L (98-107); Estimated Creatinine Clearance 52 ml/min; Glucose 94 mg/dl (70-99); Potassium 3.9 mmol/L (3.5-5.1); Sodium 140 mmol/L (135-145); eGFR 51.03
[2024-02-08] MEDS: DIOVAN 160 MG PO ×2 (07:44→20:07)
[2024-02-08] MEDS: PROCARDIA XL (EXTENDED RELEASE) 30 MG PO ×2 (07:44→20:07)
[2024-02-08] MEDS: TOPROL XL 12.5 MG PO ×2 (07:44→09:39)
[2024-02-08] MEDS: REFRESH EYE DROPS (PF) 1 DROPS OPHTH ×4 (07:45→20:08)
[2024-02-08] MEDS: TRANDATE 5 MG IV (07:49)
--- NOTE | 2024-02-08 09:27 | W.PN.NEPH.PH ---
Today's Communication / Plan
-
increase metoprolol
Assessment/Plan
-
IMP:
Hypertensive Urgency
HLD
h/p prostate ca
HERRERA
PTSD
h/o colitis
probable Right OSIRIS
Plan:
await ARR/metanephrines/catecholamines
increase metoprolol
continue procardia/valsartan
follow BMP/cr trend.
eventual MRA or renal angiography to eval suspected right OSIRIS
-
-
Date of Service: February 08, 2024
CC / HPI / ROS
-
Chief Complaint:
HTN
History of Present Illness:
Cr up to 1.5
BP high stable on 3 drugs
no fever
Review of Systems:
no cp or sob
Labs
-
Labs:
WBC 8.8 10^3/uL (4.8-10.8) 02/07/24 05:40
RBC 4.87 10^6/uL (4.70-6.10) 02/07/24 05:40
Hgb 15.0 g/dL (13.0-18.0) 02/07/24 05:40
Hct 41.1 % (39.0-52.0) 02/07/24 05:40
Plt Count 197 10^3/uL (130-400) 02/07/24 05:40
Sodium 140 mmol/L (135-145) 02/08/24 05:04
Potassium 3.9 mmol/L (3.5-5.1) 02/08/24 05:04
Chloride 106 mmol/L (98-107) 02/08/24 05:04
Carbon Dioxide 25 mmol/L (22-30) 02/08/24 05:04
BUN 20 mg/dl (9-20) 02/08/24 05:04
Creatinine 1.5 mg/dL (0.7-1.3) H 02/08/24 05:04
eGFR 51.03 02/08/24 05:04
Glucose 94 mg/dl (70-99) 02/08/24 05:04
Calcium 9.1 mg/dl (8.4-10.2) 02/08/24 05:04
Albumin 4.5 g/dl (3.5-5.0) 02/05/24 11:55
Physical Exam
-
Vital Signs:
Vital Signs
Temp Pulse Resp BP Pulse Ox
97.6 F 61 18 174/87 95
02/08/24 08:18 02/08/24 09:09 02/08/24 08:18 02/08/24 09:09 02/08/24 08:18
Cardiovascular:: Regular rate and rhythm
Respiratory:: Bilateral: CTA
Lung Excursion:: Normal
Abdomen:: Nontender and Soft
Bowel Sounds:: Normal
Extremity Edema:: None: Bilateral:
--- NOTE | 2024-02-08 10:43 | W.PN.CARDCBS ---
Addendum entered and electronically signed by Jacoby Guzman MD 02/08/24 13:29:
68-year-old man admitted with hypertensive urgency, headache, with possible renal artery stenosis by arterial Doppler and left subclavian artery stenosis. Had nonsustained VT on the monitor, peak troponin 0.027. Now feels well, but persistently
hypotensive
Current medications: Atorvastatin 10 mg a day, subcu Lovenox, nifedipine XL 30 twice daily, valsartan 160 mg twice daily, metoprolol ER 25 mg daily
Blood pressure 159/89, pulse 59, resp rate 18, sats 95%,
Subclavian artery ultrasound: Monophasic in the left upper extremity with velocity of 241 cm suggesting proximal subclavian stenosis
BUN and creatinine 21.5 with potassium 3.9
Renal arterial Doppler suspicious for right renal artery stenosis
Impression:
Hypertensive urgency
Left subclavian artery stenosis
Possible right renal artery stenosis
Nonsustained VT
Tobacco use
PTSD
Hyperlipidemia
History of prostate cancer with prostatectomy in 2016
Plan:
He appears stable overall. Blood pressure still above target and creatinine is 1.5, but overall satisfactory.
It is interesting he likely has left subclavian artery stenosis and may well have right renal artery stenosis. He will eventually need an axial imaging study of his renal arteries, either MRA or CT angiogram.
Defer to nephrology regarding best antihypertensive regimen. Evaluation for other secondary causes also in progress.
As outpatient he will need a sestamibi study in light of nonsustained VT. He has had no further nonsustained VT and is tolerating low-dose metoprolol ER.
Original Note:
Today's Communication / Plan
-
Continue Valsartan, Nifedipine, and Toprol
Toprol dose increased to 25mg daily by nephro
OP follow up arranged.
Impression / Plan
-
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
Assessment:
Presentation with headaches
HTN urgency
HLD
Prostate CA s/p prostatectomy 2016
Tobacco use
Pulmonary nodules
NSVT
ECHO 02/06/24: EF 55 to 60%, moderate concentric LVH, no significant valve disease
Plan:
-Presented with headaches and hypertensive urgency. head CT and CXR without acute abnormality.
-Continue valsartan, nifedipine, and Toprol.
-Suspicion by renal artery ultrasound for proximal right renal artery stenosis
-Noted to have BP discrepancy between arms. UE US 02/06 noted evidence of L subclavian stenosis. BP checks on R side
-Echo 02/05 with preserved EF and no significant valvular disease.
-Given NSVT and some chest heaviness in the setting of hypertension, will plan for outpatient stress test. Trops were detectable but within normal range.
-No further NSVT noted on tele overnight.
-avoid NSAIDs
-smoking cessation
-Outpatient cardiac follow-up arranged
Progress Note - Visual Merchandiser
Subjective
Date of Service: February 08, 2024
Still notes occasional headaches when BP goes up. Otherwise feeling well. No chest pain or SOB.
Objective
Labs:
02/07/24 05:40
02/08/24 05:04
Labs
Hgb 15.0 g/dL (13.0-18.0) 02/07/24 05:40
Hct 41.1 % (39.0-52.0) 02/07/24 05:40
Plt Count 197 10^3/uL (130-400) 02/07/24 05:40
PT 13.7 Sec (11.4-14.6) 02/05/24 18:53
INR 1.05 02/05/24 18:53
Sodium 140 mmol/L (135-145) 02/08/24 05:04
Potassium 3.9 mmol/L (3.5-5.1) 02/08/24 05:04
BUN 20 mg/dl (9-20) 02/08/24 05:04
Creatinine 1.5 mg/dL (0.7-1.3) H 02/08/24 05:04
Glucose 94 mg/dl (70-99) 02/08/24 05:04
Troponins
02/05/24 02/05/24 02/06/24
14:44 18:53 05:38
Troponin I < 0.012 0.018 D 0.027
02/06/24
12:47
Troponin I < 0.012 D
Vital Signs and I&O:
Vital Signs
Temp Pulse Resp BP Pulse Ox
97.6 F 61 18 174/87 95
02/08/24 08:18 02/08/24 09:39 02/08/24 08:18 02/08/24 09:39 02/08/24 08:18
Vital Signs
Temp Pulse Resp BP Pulse Ox
97.6 F 61 18 174/87 95
02/08/24 08:18 02/08/24 09:39 02/08/24 08:18 02/08/24 09:39 02/08/24 08:18
Intake & Output
02/06/24 02/07/24 02/08/24 02/09/24
06:59 06:59 06:59 06:59
Intake Total 1200 / 1200 960 / 960
Output Total 2275 / 2275
Balance -1075 / -1075 960 / 960
Physical Exam
Physical Exam
GEN: No distress, awake, alert, oriented x3
HEENT: supple, anicteric, mmm
LUNGS: CTA b/l, no wheezes/rales
CV: Reg, S1/S2, no murmur
EXT: No cyanosis, clubbing, edema
NEURO: Gross non-focal
SKIN: Warm, pink, dry. No rash
--- NOTE | 2024-02-08 12:06 | W.PN.HOSP.TC ---
Today's Communication/Plan
-
discussed with Dr. Sidhu holding dc until can recheck BP on increased dose of Toprol and recheck Creat, pt is agreeable
Assessment / Plan
Assessment / Plan
Mr. Laureano Partida is a 68 yo man with hx prostate CA sent from PCP for elevated blood pressures at the office. He was found to have BP 214/110 associated with headache, admitted for hypertensive urgency and work up of secondary hypertension.
Triage VS: T 98.2, P 61, RR 18, BP 214/110-->167/89, SpO2 97%
LABS: WBC 11.7-->9.0, Hg 15.3, PLT 221, Na 139, K+ 3.9, Cl 106, CO2 22, BUN 16, Cr 1.1, Glucose 103, T. Bili 1.1, AST 28, ALT 22, Alk Phos 100, Trop < 0.012
EKG: NSR with PAC's, incomplete RBBB, prolonged QTc [address]
IMPRESSION:
No acute intracranial abnormality.
Creat 1.3-->1.3-->1.[address] Sidhu 02/07, would like to hold dc and recheck Creat and BP tomorrow
Hypertensive Urgency
-s/p IV hydralazine 10mg , Losartan 50mg and Clonidine 0.1mg in ER
02/06 on Procardia XL 30 mg bid, Diovan 160 mg daily and Toprol XL 12.5 daily-->02/07 Toprol XL increased to 25 mg daily
-patient reported shortness of breath and chest pain post Hydralazine that is now resolved
-transferred to telemetry
- Troponin peaked 0.027
-TTE: Normal biventricular size and systolic function without regional wall motion
abnormality. Estimated LVEF 55-60%.
Moderate concentric left ventricular hypertrophy.
No significant valve disease.
-Nephrology consult for further work up of secondary hypertension
renin/aldosterone ratio
-EKG 02/04: SINUS BRADYCARDIA
POSSIBLE LEFT ATRIAL ENLARGEMENT
INCOMPLETE RIGHT BUNDLE BRANCH BLOCK
NONSPECIFIC T WAVE ABNORMALITY
ABNORMAL ECG
WHEN COMPARED WITH ECG OF 03-JUN-2015 07:01,
NONSPECIFIC T WAVE ABNORMALITY NOW EVIDENT IN INFERIOR LEADS
NONSPECIFIC T WAVE ABNORMALITY NOW EVIDENT IN LATERAL LEADS
HLD
-TRANSPORTATION PLANNING ENGINEER Statin
DVT PPx Lovenox subQ
with mild Trop leak and abn EKG, appreciate consult cardio. Pt's has seen Hien in past and they request his group
FULL CODE
Anticipated Discharge: 24 - 48 hours
Subjective/Interval History
-
Date of Service: February 08, 2024
Generally feels well
Objective Data
-
Labs:
Laboratory Results
02/08/24
05:04
Sodium 140
Potassium 3.9
Chloride 106
Carbon Dioxide 25
BUN 20
Creatinine 1.5 H
Glucose 94
Calcium 9.1
Vital Signs:
Vital Signs
Temp Pulse Resp BP Pulse Ox
98.1 F 59 18 159/89 95
02/08/24 11:49 02/08/24 11:49 02/08/24 11:49 02/08/24 11:49 02/08/24 11:49
I&O
02/07/24 02/08/24 02/09/24
06:59 06:59 06:59
Intake Total 1200 / 1200 960 / 960
Output Total 2275 / 2275
Balance -1075 / -1075 960 / 960
Review of Systems
-
History Source: Patient, Physician and Coordinated Provider
Constitutional: Denies Fever
EENT: Reports No Symptoms Reported
Respiratory: Reports No Symptoms; Denies Cough
Cardiac: Reports No Symptoms; Denies Chest Pain
Abdomen/GI: Reports No Symptoms
Genitourinary: Reports No Symptoms
Musculoskeletal: Reports No Symptoms
Neuro: Denies Headache (resolved)
Physical Exam
-
General: Well Developed, Well Nourished and No Apparent Distress
HEENT: Normocephalic, Atraumatic and Moist Mucous Membranes
Respiratory: Clear to Auscultation; Negative Wheezes, Rales or Rhonchi
Cardiac: Regular Rhythm and S1/S2
GI: Soft, Nontender and Nondistended
Musculoskeletal: No Clubbing, No Cyanosis and No Edema
Neuro: Awake, Alert and Oriented
Psych: Calm
[2024-02-08] MEDS: TYLENOL 1000 MG PO (12:43)
--- NOTE | 2024-02-08 14:06 | PTCARENOTE ---
Medication education provided to patient and . Written educational teaching sheets given to patient on current medications. Patient and verbalize understanding of education. All questions answered.
[2024-02-08] MEDS: LOVENOX 40 MG SC (17:26)
[2024-02-08] MEDS: LIPITOR 10 MG PO (20:07)
[2024-02-09 03:45] VITALS: BP 177/98
[2024-02-09] MEDS: TYLENOL 1000 MG PO (05:00)
[2024-02-09] MEDS: TRANDATE 5 MG IV (05:00)
[2024-02-09 05:22] LABS: Hemoglobin 14.1 g/dL (13.0-18.0); Mean Corp Hgb Conc. 36.2 g/dL (33.0-37.0); Mean Corpuscular Hgb 29.7 pg (27.0-31.0); Mean Corpuscular Volume 82.3 fL (80.0-94.0); Mean Platelet Volume 11.5 fL (7.4-10.4); Platelet Count 206 10^3/uL (130-400); Red Blood Cell Count 4.74 10^6/uL (4.70-6.10); Red Cell Dist. Width 12.8 % (11.5-14.5); White Blood Cell Count 8.7 10^3/uL (4.8-10.8)
[2024-02-09 05:51] LABS: Blood Urea Nitrogen 21 mg/dl (9-20); Calcium 9.3 mg/dl (8.4-10.2); Carbon Dioxide 26 mmol/L (22-30); Chloride 105 mmol/L (98-107); Estimated Creatinine Clearance 55 ml/min; Glucose 92 mg/dl (70-99); Potassium 3.7 mmol/L (3.5-5.1); Sodium 141 mmol/L (135-145); eGFR 55.43
[2024-02-09 06:00] VITALS: BP 181/92
[2024-02-09] MEDS: TOPROL XL 25 MG PO (06:31)
[2024-02-09] MEDS: PROCARDIA XL (EXTENDED RELEASE) 30 MG PO (06:31)
[2024-02-09] MEDS: DIOVAN 160 MG PO (06:31)
[2024-02-09] MEDS: REFRESH EYE DROPS (PF) 1 DROPS OPHTH (06:31)
[2024-02-09 07:00] VITALS: BP 150/89
--- NOTE | 2024-02-09 07:54 | W.PN.CARDCBS ---
Today's Communication / Plan
-
Okay for discharge from cardiac standpoint
Continue metoprolol ER, currently 25 mg daily
Antihypertensive regimen per nephrology
Cardiac follow-up arranged
Impression / Plan
-
Primary Offset Printer: None prior to admission
Assessment:
Presentation with headaches
HTN urgency
HLD
Prostate CA s/p prostatectomy 2015
Tobacco use
Pulmonary nodules
NSVT
ECHO 02/06/24: EF 55 to 60%, moderate concentric LVH, no significant valve disease
Plan:
Patient is stable from a cardiac standpoint.
Defer antihypertensive regimen to nephrology.
From cardiac standpoint, okay for discharge.
Cardiac follow-up arranged.
Progress Note - Offset Printer
Subjective
Date of Service: February 09, 2024:
Current medications: Atorvastatin 10 mg a day, subcu Lovenox, nifedipine ER 30 mg twice daily, valsartan 160 mg twice daily, metoprolol ER 25 mg daily
181/92, pulse 56, respiratory rate 18, afebrile, 97, lowest systolic blood pressure last 24 hours 59, diastolics high 80s low 90s, head neck exam unremarkable, lungs are clear, regular rate and rhythm without significant murmur abdomen benign
extremities without clubbing or edema distal pulses intact.
Hemoglobin 14.1, BUN and creatinine 21 and 1.4, potassium 3.7
Objective
Labs:
02/09/24 04:56
02/09/24 04:56
Labs
Hgb 14.1 g/dL (13.0-18.0) 02/09/24 04:56
Hct 39.0 % (39.0-52.0) 02/09/24 04:56
Plt Count 206 10^3/uL (130-400) 02/09/24 04:56
PT 13.7 Sec (11.4-14.6) 02/05/24 18:53
INR 1.05 02/05/24 18:53
Sodium 141 mmol/L (135-145) 02/09/24 04:56
Potassium 3.7 mmol/L (3.5-5.1) 02/09/24 04:56
BUN 21 mg/dl (9-20) H 02/09/24 04:56
Creatinine 1.4 mg/dL (0.7-1.3) H 02/09/24 04:56
Glucose 92 mg/dl (70-99) 02/09/24 04:56
Troponins
02/06/24
12:47
Troponin I < 0.012 D
Vital Signs and I&O:
Vital Signs
Temp Pulse Resp BP Pulse Ox
36.7 C 56 18 181/92 97
02/09/24 03:45 02/09/24 03:45 02/09/24 03:45 02/09/24 06:00 02/09/24 03:45
Vital Signs
Temp Pulse Resp BP Pulse Ox
36.7 C 56 18 181/92 97
02/09/24 03:45 02/09/24 03:45 02/09/24 03:45 02/09/24 06:00 02/09/24 03:45
Intake & Output
02/06/24 02/07/24 02/08/24 02/09/24
07:59 07:59 07:59 07:59
Intake Total 1200 / 1680 960 / 960 2160 / 2160
Output Total 2275 / 2275
Balance -1075 / -595 960 / 960 2159 / 2159
Physical Exam
Physical Exam
See above
--- NOTE | 2024-02-09 09:45 | W.PN.NEPH.PH ---
Today's Communication / Plan
-
increase metoprolol
Assessment/Plan
-
IMP:
Hypertensive Urgency
HLD
h/p prostate ca
HERRERA
PTSD
h/o colitis
probable Right OSIRIS
Plan:
await ARR/metanephrines/catecholamines
increase metoprolol again
continue procardia/valsartan
follow BMP/cr trend.
eventual MRA OP or renal angiography (Dr. Ordonez) to eval suspected right OSIRIS
dc planning
BMP on
our office will call for F/U
-
-
Date of Service: February 09, 2024
CC / HPI / ROS
-
Chief Complaint:
HTN
History of Present Illness:
Cr stable 1.4
BP stable on 3 drugs
HR better
no fever
Review of Systems:
no cp or sob
Labs
-
Labs:
WBC 8.7 10^3/uL (4.8-10.8) 02/09/24 04:56
RBC 4.74 10^6/uL (4.70-6.10) 02/09/24 04:56
Hgb 14.1 g/dL (13.0-18.0) 02/09/24 04:56
Hct 39.0 % (39.0-52.0) 02/09/24 04:56
Plt Count 206 10^3/uL (130-400) 02/09/24 04:56
Sodium 141 mmol/L (135-145) 02/09/24 04:56
Potassium 3.7 mmol/L (3.5-5.1) 02/09/24 04:56
Chloride 105 mmol/L (98-107) 02/09/24 04:56
Carbon Dioxide 26 mmol/L (22-30) 02/09/24 04:56
BUN 21 mg/dl (9-20) H 02/09/24 04:56
Creatinine 1.4 mg/dL (0.7-1.3) H 02/09/24 04:56
eGFR 55.43 02/09/24 04:56
Glucose 92 mg/dl (70-99) 02/09/24 04:56
Calcium 9.3 mg/dl (8.4-10.2) 02/09/24 04:56
Albumin 4.5 g/dl (3.5-5.0) 02/05/24 11:55
Physical Exam
-
Vital Signs:
Vital Signs
Temp Pulse Resp BP Pulse Ox
97.9 F 80 16 150/89 98
02/09/24 07:00 02/09/24 07:00 02/09/24 07:00 02/09/24 07:00 02/09/24 08:00
Cardiovascular:: Regular rate and rhythm
Respiratory:: Bilateral: Coarse
Lung Excursion:: Normal
Abdomen:: Nontender and Soft
Bowel Sounds:: Normal
Extremity Edema:: None: Bilateral:
[2024-02-09 11:00] VITALS: BP 151/75
--- NOTE | 2024-02-09 11:09 | CM ---
Patient seen at bedside. Patient states that he plans for discharge home. Patient completed IMM and signed form placed on chart. CM will continue to follow for discharge planning needs.
Plan; home with no needs anticipated at this time
--- NOTE | 2024-02-09 11:17 | W.PN.HOSP.TC ---
Today's Communication/Plan
-
dc to home
Assessment / Plan
Assessment / Plan
Mr. Laureano Partida is a 68 yo man with hx prostate CA sent from PCP for elevated blood pressures at the office. He was found to have BP 214/110 associated with headache, admitted for hypertensive urgency and work up of secondary hypertension.
Triage VS: T 98.2, P 61, RR 18, BP 214/110-->167/89-->150/89, SpO2 97%
LABS: WBC 11.7-->9.0, Hg 15.3, PLT 221, Na 139, K+ 3.9, Cl 106, CO2 22, BUN 16, Cr 1.1, Glucose 103, T. Bili 1.1, AST 28, ALT 22, Alk Phos 100, Trop < 0.012
EKG: NSR with PAC's, incomplete RBBB, prolonged QTc [address]
IMPRESSION:
No acute intracranial abnormality.
Creat 1.3-->1.3-->1.5-->1.[address] Sidhu 02/08, okay for dc
Hypertensive Urgency
-s/p IV hydralazine 10mg , Losartan 50mg and Clonidine 0.1mg in ER
02/06 on Procardia XL 30 mg bid, Diovan 160 mg daily and Toprol XL 12.5 daily-->02/07 Toprol XL increased to 25 mg daily and Hydralazine 50 mg added, as per Dr. Sidhu
-patient reported shortness of breath and chest pain post Hydralazine that is now resolved
-transferred to telemetry
- Troponin peaked 0.027
-TTE: Normal biventricular size and systolic function without regional wall motion
abnormality. Estimated LVEF 55-60%.
Moderate concentric left ventricular hypertrophy.
No significant valve disease.
-Nephrology consult for further work up of secondary hypertension
renin/aldosterone ratio
-EKG 02/04: SINUS BRADYCARDIA
POSSIBLE LEFT ATRIAL ENLARGEMENT
INCOMPLETE RIGHT BUNDLE BRANCH BLOCK
NONSPECIFIC T WAVE ABNORMALITY
ABNORMAL ECG
WHEN COMPARED WITH ECG OF 03-JUN-2015 07:01,
NONSPECIFIC T WAVE ABNORMALITY NOW EVIDENT IN INFERIOR LEADS
NONSPECIFIC T WAVE ABNORMALITY NOW EVIDENT IN LATERAL LEADS
HLD
-CAN CRIMPER Statin
DVT PPx Lovenox subQ
with mild Trop leak and abn EKG, appreciate consult cardio. Pt's has seen Hien in past and they request his group
FULL CODE
Will dc now
see dictated note
More than 30 minutes spent in discharge including
Final examination of the patient
Summarizing hospital stay
Instructions for continuing care to all relevant caregivers
Preparation of discharge records, prescriptions, and referral forms
Total time spent (in minutes): 45
Anticipated Discharge: Today
Subjective/Interval History
-
Date of Service: February 09, 2024
Feels well, anxiously awaiting dc
Objective Data
-
Labs:
Laboratory Results
02/09/24
04:56
WBC 8.7
Hgb 14.1
Hct 39.0
Plt Count 206
Sodium 141
Potassium 3.7
Chloride 105
Carbon Dioxide 26
BUN 21 H
Creatinine 1.4 H
Glucose 92
Calcium 9.3
Vital Signs:
Vital Signs
Temp Pulse Resp BP Pulse Ox
97.9 F 80 16 150/89 98
02/09/24 07:00 02/09/24 07:00 02/09/24 07:00 02/09/24 07:00 02/09/24 08:00
I&O
02/08/24 02/09/24 02/10/24
06:59 06:59 06:59
Intake Total 960 / 960 2160 / 2160
Balance 960 / 960 2160 / 2160
Review of Systems
-
History Source: Patient, Family ( sitting next to patient), Physician (reviewed with Trena Sidhu and Thomas) and Coordinated Provider
Constitutional: Denies Fever
EENT: Reports No Symptoms Reported
Respiratory: Reports No Symptoms
Cardiac: Reports No Symptoms
Abdomen/GI: Reports No Symptoms
Musculoskeletal: Reports No Symptoms
Neuro: Reports No Symptoms
Physical Exam
-
General: Well Developed, Well Nourished and No Apparent Distress
HEENT: Normocephalic, Atraumatic and Moist Mucous Membranes
Respiratory: Clear to Auscultation; Negative Wheezes, Rales or Rhonchi
Cardiac: Regular Rhythm and S1/S2
GI: Soft, Nontender and Nondistended
Musculoskeletal: No Clubbing, No Cyanosis and No Edema
Neuro: Awake, Alert and Oriented
Psych: Calm
[2024-02-09] MEDS: PREVNAR 20 0.5 ML IM (11:51)
--- NOTE | 2024-02-09 13:15 | W.DS.TRANS ---
DC Summary - Nursing Educator
-
Discharge Instructions:
Discharge Diagnosis/Procedures Hypertension uncontrolled
Diet No added salt
Activity No strenuous activity
Driving Restrictions Not until seen by your Dr
Bathing Restrictions None
Blood Work BMP in 1 week
Others Tests exercise nuclear stress test scheduled for
24@12:00PM at [facility] office.
see instruction packet
Instructions:
Stand-Alone Forms:
Changes to Home Medications: Yes
Discharge Medications:
DC Medications w/original date entered in [employer]
ascorbic acid (vitamin C) 500 mg tablet (Vitamin C) 500 mg PO DAILY Supplement 02/05/24
atorvastatin 10 mg tablet 10 mg PO HS High Cholesterol 02/05/24
cholecalciferol (vitamin D3) 50 mcg (2,000 unit) tablet (Vitamin D3) 50 mcg PO DAILY Supplement 02/05/24
cyanocobalamin (vitamin B-12) 1,000 mcg tablet 1,000 mcg PO DAILY Supplement 02/05/24
glucosamine sulfate 500 mg tablet (Glucosamine) 500 mg PO DAILYPRN PRN supplement 02/05/24
zinc sulfate 50 mg zinc (220 mg) tablet 50 mg PO DAILY Supplement 02/05/24
hydralazine 50 mg tablet 50 mg PO BID #60 tabs 02/09/24
metoprolol succinate 25 mg tablet,extended release 24 hr (Toprol XL) 25 mg PO DAILY #30 tabs 02/09/24
nifedipine 30 mg tablet,extended release 30 mg PO BID #60 tabs 02/09/24
valsartan 160 mg tablet (Diovan) 160 mg PO BID #60 tabs 02/09/24
Home Medication Changes
Hydralazine, Toprol, Procardia and Diovan are all new
Pending Results: No
[2024-02-09 17:52] LABS: Aldosterone, Serum 18.7 ng/dL; Aldosterone/Renin Activ Ratio 0.7 ratio (<=25.0); Renin Activity Results 25.7 ng/mL/hr
== END 2024-02-09 12:40 | disposition home or self-care (01) | DRG 305 ==
LOC: 4 EAST ACU 16:57
PROVIDERS: Emergency Medicine; Nurse Practitioner Family; Specialist; ADMITTING PHYSICIAN Student in an Organized Health Care Education/Training Program; ATTENDING PHYSICIAN Internal Medicine; CONSULT PHYSICIAN Internal Medicine; CONSULT PHYSICIAN Internal Medicine Cardiovascular Disease; CONSULT PHYSICIAN Internal Medicine Critical Care Medicine; EMERGENCY PHYSICIAN Emergency Medicine; FAMILY PHYSICIAN Nurse Practitioner Family
DX: I16.1 Hypertensive emergency (principal); I10 Essential (primary) hypertension; F17.210 Nicotine dependence, cigarettes, uncomplicated; E78.00 Pure hypercholesterolemia, unspecified
CPT/HCPCS: 70450; 71045; 80048; 80053; 81003; 82088; 82384; 83735; 83835; 84244; 84443; 84484; 85025; 85027; 85610; 90677; 93005; 93306; 93930; 93975; 96374; 99291; G0009

== ENCOUNTER → 2024-02-13 11:43 | Outpatient (REF) | payer MEDICARE, OTHER, SELFPAY | LOC: DHCBC/DCA 11:43 | PROVIDERS: ATTENDING PHYSICIAN Internal Medicine Cardiovascular Disease; FAMILY PHYSICIAN Nurse Practitioner Family | DX: I47.29 Other ventricular tachycardia (principal); I10 Essential (primary) hypertension; R77.8 Other specified abnormalities of plasma proteins | CPT/HCPCS: 78452; 93017; A9500 ==

== ENCOUNTER 2024-03-17 07:39 | Outpatient (RCR) | payer MEDICARE, OTHER, SELFPAY ==
[2024-03-17 08:00] VITALS: BP 110/65
[2024-03-17] MEDS: SODIUM BICARBONATE 1150 MEQ IV (08:05)
== END 2024-03-18 09:47 | disposition home or self-care (01) ==
LOC: OID 07:39
PROVIDERS: ATTENDING PHYSICIAN Surgery Vascular Surgery; FAMILY PHYSICIAN Nurse Practitioner Family
DX: I77.1 Stricture of artery (principal); I70.1 Atherosclerosis of renal artery; Z92.89 Personal history of other medical treatment
CPT/HCPCS: 71275; 74174; 96365; 96366; Q9967

== ENCOUNTER 2024-03-24 06:07 | Day surgery (SDC) | payer MEDICARE, OTHER, SELFPAY ==
[2024-03-23 10:07] VITALS: BMI 31.0
[2024-03-24] VITALS (16 sets, daily range): BP systolic 101–150; BP diastolic 60–85; BMI 29.2
--- NOTE | 2024-03-24 07:15 | W.SUR.PREOP ---
Pre-Operative Surgical Note
-
I have examined this patient prior to the performance of the scheduled procedure.
The patient's condition is unchanged from the time of the current History and
Physical and the patient is able to undergo the scheduled procedure.
[2024-03-24] MEDS: PLAVIX 300 MG PO (08:53)
[2024-03-24] MEDS: LOW STRENGTH ASPIRIN 81 MG PO (08:53)
[2024-03-24] MEDS: DILAUDID 0.5 MG IV ×2 (08:55→09:14)
--- NOTE | 2024-03-24 09:46 | SUR.PHASEI ---
patient in pacu post renal stent, - perclosure device hemostasis at 0821, groin site dry and free of drainage, vss, doppler signals DP and PT pulses bilaterally - right side stronger signals than left on DP. Medicated with plavix and asa as
ordered, also medicated for chronic left shoulder pain - difficult positioning with lying flat. warm blanket on left shoulder for comfort.
--- NOTE | 2024-03-24 11:03 | OR.RPT ---
Operative Report
Operative Report
Date of Operation: 03/24/2024
Pre Op Diagnosis:
1.) Poorly controlled hypertension on 4 different agents
2.) Right renal artery stenosis
Post Op Diagnosis:
1.) Poorly controlled hypertension on 4 different agents
2.) Right renal artery stenosis
Procedure:
1.) balloon angioplasty and stenting of right renal artery stenosis (6 mm x 22 mm iCast stent)
2.) diagnostic aortogram
3.) selective catheterization of right renal artery
4.) selective catheterization of left renal artery
5.) ultrasound-guided percutaneous access to the right common femoral artery
6.) Pro-glide closure of right common femoral artery access
Surgeon: Kumar Van III, MD
Care Manager Cna: Ricky Malik MD PhD, PGY2
Anesthesia: Sedation with local
Fluoroscopy:
9.0 min
218 mGy
73 Gy.cm2
Complications: None
Estimated Blood Loss: 20 cc
History and Indications for Procedure: 68-year-old male with poorly controlled hypertension on 4 agents and right renal artery stenosis
Procedure in Detail: Laureano Partida was correctly identified and placed supine on the operating table. After adequate induction of anesthesia the bilateral groins were prepped and draped in the usual sterile fashion. A timeout was performed with the
nursing and anesthesia staff confirming the patient's identity as well as the nature and laterality of the procedure.
The right common femoral artery was identified under ultrasound guidance. The artery was patent. The superior and inferior aspects of the femoral head were identified with radiographic guidance and marked at the skin level. The proposed puncture
site was infiltrated with local anesthesia. Under ultrasound guidance we accessed the right common femoral artery with a micropuncture needle and upsized to a 5 Fr sheath over a [employer] wire. The wire and a pigtail catheter were advanced into the
distal abdominal aorta and a diagnostic aorto-biiliac arteriogram was performed:
AORTOGRAM: Patent aortogram. High grade stenosis of proximal right renal artery. Mid/distal right renal artery patent with no stenosis identified. Accessory right renal artery patent with no stenosis identified. Patent left renal artery with no
stenosis identified.
ENDOVASCULAR INTERVENTION: Systemic heparin was administered. Advanced a 6 [place] 45 cm [place]sell sheath over a Storq wire to the level of the renal arteries. Under roadmap guidance using a Glidewire and Vanschie 4 catheter I selected the right renal
artery. The wire was advanced into a distal branch. The catheter was carefully tracked over the wire into the mid/distal main renal artery and I exchanged out for a [place] wire. The sheath tip was advanced towards the orifice of the right renal
artery and an arteriogram confirmed proper position in the right renal artery. Under roadmap guidance I positioned a 6 mm x 22 mm iCAST stent across the right renal artery stenosis. The stent was deployed in the desired location. A completion
arteriogram was performed through the sheath which demonstrated an excellent technical result. The stent was widely patent with no residual stenosis identified. There was brisk flow through the right renal artery.
I then disengaged the wire and sheath from the right renal artery. Under roadmap guidance using the Vanschie 4 catheter and Glidewire I selected the left renal artery. I performed a selected arteriogram of the left renal artery which showed once
again a patent left renal artery with brisk flow no stenosis identified.
Satisfied with this result we concluded the procedure. The sheath tip was pulled back into the right external iliac artery. Protamine was administered. A Bentson wire was placed. A Pro-glide closure device was used to close the right femoral
artery access. Hemostasis was achieved. A sterile dressing was applied.
The patient tolerated the procedure well and was taken to the recovery area in stable condition.
Attestation: I was present and responsible for the entire procedure.
Signed:
Kumar Van III, MD
[facility]
[phone] (qaid)
[2024-03-24] MEDS: NSS 1000 IV (11:10)
--- NOTE | 2024-03-24 11:22 | W.IMMPOSTOP ---
Surgical Immed Post Op Note
-
Primary Surgeon: Dr. Kumar Van III, MD
Assisting Surgeon: Ricky Malik MD, PhD (PGY-2)
Pre-op Diagnosis: Medically refractory hypertension; right renal artery stenosis
Post-op Diagnosis: Medically refractory hypertension; right renal artery stenosis
Procedure Performed: Aortogram, balloon angioplasty and stent placement in right renal artery
Anesthesia Type: MAC
Specimen / Cultures: None
Estimated Blood Loss: Minimal
Complications: None
Operative Findings: The patient was brought to the OR and prepped and draped in usual sterile fashion. Fluoroscopy was used to identify the superior and inferior heads of the femoral head, which was marked at the skin. Ultrasound was used to
identify the right common femoral artery. This was accessed with a micropuncture kit and upsized to a 6Fr sheath over ben[place] wire. A guidewire and catheter was advanced into the abdominal aorta. Diagnostic aortogram showed an area of focal stenosis
in the proximal right renal artery. The right renal artery was selected and a wire was passed across the area of stenosis. A balloon angioplasty and stent was placed at the site of stenosis. Post balloon angioplasty and stent aortogram showed
improvement in the caliber of the right renal artery. Selective catheterization of the left renal artery was then performed and showed a good caliber vessel. At the conclusion of the case, the catheters were removed and a perclose device x1 was
delivered at the arterial access site. 5 minutes of manual pressure was held with good hemostasis. The patient was transported to the PACU with dopplerable PT/DP pulses bilaterally.
== END 2024-03-24 11:30 | disposition home or self-care (01) ==
LOC: CATH 06:07
PROVIDERS: ATTENDING PHYSICIAN Surgery Vascular Surgery; FAMILY PHYSICIAN Nurse Practitioner Family; OTHER PHYSICIAN Internal Medicine Cardiovascular Disease
DX: I70.1 Atherosclerosis of renal artery (principal); I10 Essential (primary) hypertension
CPT/HCPCS: 37236; 36252; C1769; C1894; C1760; C1874; C1887; Q9967

== ENCOUNTER 2024-04-22 19:37 | Emergency (ER) | payer MEDICARE, OTHER, SELFPAY ==
[2024-04-22 19:43] VITALS: BP 136/66
[2024-04-22 19:51] VITALS: BP 126/61
[2024-04-22 20:12] LABS: % Basophils 0.2 % (0-2); % Eosinophils 3.5 % (0-6); % Immature Granulocytes 0.2 % (0-0.5); % Lymphocytes 22.1 % (20.5-51.1); % Monocytes 15.4 % (1.7-9.3); % Neutrophils 58.6 % (42.2-75.2); Absolute Eosinophils 0.3 10^3/uL (0-0.7); Absolute Lymphocytes 1.8 10^3/uL (1.2-3.4); Absolute Monocytes 1.3 10^3/uL (0.1-0.6); Absolute Neutrophils 4.9 10^3/uL (1.4-6.5); Hematocrit 32.8 % (39.0-52.0); Hemoglobin 11.5 g/dL (13.0-18.0); Mean Corp Hgb Conc. 35.1 g/dL (33.0-37.0); Mean Corpuscular Hgb 30.6 pg (27.0-31.0); Mean Corpuscular Volume 87.2 fL (80.0-94.0); Mean Platelet Volume 10.4 fL (7.4-10.4); Nucleated Red Blood Cells % 0 % (-); Platelet Count 219 10^3/uL (130-400); Red Blood Cell Count 3.76 10^6/uL (4.70-6.10); Red Cell Dist. Width 13.6 % (11.5-14.5); White Blood Cell Count 8.3 10^3/uL (4.8-10.8)
--- NOTE | 2024-04-22 20:12 | ED.GENMED ---
History of Present Illness
General
Chief Complaint: Chest Pain
Source: patient
Exam Limitations: none
Time Seen by Provider: 04/22/24 20:00
History of Present Illness
History of Present Illness:
This is a 69 year old male that comes in with c/o pain that goes across his upper chest and shoulders. States that this started about 2-3 weeks ago. Then last night he had a cramp in the right chest. States that his ankles have also been swelling on
and off and that the pain across the chest has been constant. States that he also can't lift his arms above his head and keep them there. States that he felt SOB. Denies any fever, chills, abd pain, nausea, vomiting, diarrhea, headache, dizziness,
urinary burning.
Past History
Past History
ED Past Medical History: None, Cancer (Prostate Cancer, Skin cancer), HTN, Hypercholesterolemia and Other (PTSD,)
ED Past Surgical History: Orthopedic (Left shoulder surgery, Left knee surgery, ), Urological ( Prostatectomy, Renal stent) and Other (Mohs behind left ear)
Social History
Tobacco: Former smoker
Alcohol: None
Drug: None
Personal:
Living: with family
Review of Systems
Review of Systems
All Other Systems: ROS reviewed and negative except as documented in HPI and ROS
Constitutional: Reports no symptoms; Denies fever or chills
EENT: Reports no symptoms
Respiratory: Reports trouble breathing; Denies cough
Cardiac: Reports chest pain (Upper chest into shoulders)
ABD/GI: Reports no symptoms; Denies abdominal pain, nausea, vomiting or diarrhea
: Reports no symptoms; Denies dysuria, frequency or urgency
Musculoskeletal: Reports no symptoms
Skin: Reports no symptoms
Neurological: Reports no symptoms; Denies dizzy or headache
Psychiatric: Reports no symptoms
Phy Exam
General Physical Exam
General Presentation: well appearing and no apparent distress
General age: appears stated age
General Skin: warm and dry
General Habitus: normal
General Mental: alert
General Hydration: appears well hydrated
ENT Exam
ENT Exam: TM's normal, pharynx normal and neck supple
Eye Exam
Eye Exam: EOMI
Cardiovascular Exam
Cardiovascular Exam: regular rate/rhythm, no edema and normal peripheral pulses
Pulmonary Exam
Pulmonary Exam: lungs clear, no respiratory distress, no rales, chest non tender, no crackles, no rhonchi, no wheezing and no cough
Gastrointestinal Exam
Gastrointestinal Exam: normal bowel sounds, non tender, soft, no organomegaly, no pulsatile mass and non distended
Musculoskeletal Exam
Musculoskeletal Exam: full ROM and no edema
Skin Exam
Skin Exam: normal color, warm/dry, no rash and no petechia
Psychiatric Exam
Psychiatric Exam: normal mood/affect
Scores
Heart Score for Chest Pain Patients
STEMI patient?: No
History: Slightly or Non-Suspicious
ECG: Normal
Age: >/= 65 years
Risk Factors: 1 or 2 Risk Factors
Troponin: </= Normal Limit
Heart Score for Chest Pain Patients: 3
Heart Score Risk: 2.5% MACE over next 6 weeks
Course
Orders/Labs/Results
Orders:
Orders
04/22/24 19:38
ECG [Electrocardiogram (*1)] Urgent
Reason for Study: Chest Pain
EKG- Treatment ONCE
04/22/24 20:05
Complete Blood Count/With Diff Urgent
Comprehensive Metabolic Panel Urgent
NT-proBNP Urgent
Troponin I Urgent
04/22/24 20:11
CR Cervical Spine 4 Or 5 Vw Urgent
Comment:
Reason For Exam: Pain, bilateral shoulder pain ,
CR Chest - 2 Views Urgent
Comment:
Reason For Exam: SOB, chest pain upper
04/22/24 20:19
Acetaminophen [Tylenol] 1,000 mg PO NOW STA
Ketorolac [Toradol] 30 mg IV NOW STA
Abnormal Lab Results
04/22/24
20:05
RBC 3.76 L 10^6/uL
(4.70-6.10)
Hgb 11.5 L g/dL
(13.0-18.0)
Hct 32.8 L %
(39.0-52.0)
Absolute Monos (auto) 1.3 H 10^3/uL
(0.1-0.6)
Monocytes % 15.4 H %
(1.7-9.3)
Chloride 109 H mmol/L
(98-107)
Carbon Dioxide 20 L mmol/L
(22-30)
BUN 29 H mg/dl
(9-20)
Creatinine 1.6 H mg/dL
(0.7-1.3)
Glucose 108 H mg/dl
(70-99)
04/22/24 20:05
04/22/24 20:05
H/H slightly low. Dehydration. Glucose nonfasting Troponin <0.012, Pro-BNP 204
Vital Signs
Initial and Last Documented VS:
Initial Vital Signs
Temp Pulse Resp BP Pulse Ox
98.1 F 82 16 136/66 97
04/22/24 19:43 04/22/24 19:43 04/22/24 19:43 04/22/24 19:43 04/22/24 19:43
Last Documented Vital Signs
Temp Pulse Resp BP Pulse Ox
98.1 F 71 16 130/67 94
04/22/24 19:43 04/22/24 21:30 04/22/24 21:30 04/22/24 21:00 04/22/24 21:30
MDM/Problems Addressed
Differential Diagnosis Includes:
Musculoskeletal pain. Coronary syndrome,
MDM/Problems Addressed:
This is a 69 year old male that comes in with c/o 2-3 weeks of upper chest pain that goes cross to both shoulder. States that he cant lift his arms up above his head and hold them there. States that this has been constant pain. Patient has an
appointment with the Green Building Architect on the 05 of May.
Will check labs, Chest x-ray and medicate for pain
Back into see patient. Reviewed labs, chest x-ray and cervical spine result. Explained that this may be all musculoskeletal patient due to the degenerative change sin the neck. Patient has an appointment with the Green Building Architect and encouraged him to
keep this appointment for further evaluation. Patient can use Tylenol 1000mg every 6 hours for pain. Heat or ice to the shoulder neck area for any discomfort. Return with increased or changing pain.
Chronic conditions affecting care:
NA
Acute Exacerbation and/or Progression of Chronic Illness:
NA
*Radiology
Radiology exam reviewed: radiology read reviewed (CHest-NO acute disease of the chest. Cervical spine - Bilateral neural foraminal narrowing. Moderate C6/C7 degenerative disc disease. Bilateral cervical spine facet hypertrophy. )
*Pulse Oximetry
Patient hypoxic: no
*EKG
Interpreted by ED Provider?: Yes
Heart Rate: 81
Rate: normal
Rhythm: sinus
Agate: normal axis
Interval: normal interval
QRS Pattern: normal QRS
Ischemia: no ischemia
*Wine Sales Representative Interpretation
Rate: normal
Heart Rate: 73
Rhythm: sinus
*Critical Care Note
Total Time (30-74mins, 75-104mins- exclusive of procedures): Not Applicable
ED Attending Note
-
Portions of this chart may have been created with voice recognition software.� Occasional wrong word or��sound alike� substitutions may have occurred due to the inherent limitations of voice recognition software.
Discharge Plan
Departure
Patient Disposition: Home (Routine Discharge)
Date of Disposition: 04/22/24
Time of Disposition: 22:45
Patient with high blood pressure during this ER visit?: Yes
Condition: Good
Covid-19: Not Applicable
Discharge Problem:
Musculoskeletal pain
Instructions: BLOOD PRESSURE, Musculoskeletal Pain
Prescriptions:
No Action
atorvastatin 10 mg Tablet
10 mg PO HS
cyanocobalamin (vitamin B-12) 1,000 mcg Tablet
1,000 mcg PO DAILY
glucosamine sulfate [Glucosamine] 500 mg Tablet
500 mg PO DAILYPRN PRN (Reason: supplement)
zinc sulfate 50 mg zinc (220 mg) Tablet
50 mg PO DAILY
ascorbic acid (vitamin C) [Vitamin C] 500 mg Tablet
500 mg PO DAILY
cholecalciferol (vitamin D3) [Vitamin D3] 50 mcg (2,000 unit) Tablet
50 mcg PO DAILY
metoprolol succinate [Toprol XL] 25 mg tablet extended release 24 hr
25 mg PO DAILY Qty: 30 3RF
valsartan [Diovan] 160 mg tablet
160 mg PO BID Qty: 60 3RF
nifedipine 30 mg Tablet Extended Release
30 mg PO QPM
aspirin 81 mg Tablet
81 mg PO DAILY
acetaminophen 325 mg Capsule
650 mg PO ONCE PRN (Reason: pain)
nifedipine 30 mg tablet extended release
60 mg PO DAILY
hydralazine 50 mg tablet
100 mg PO BID
clopidogrel 75 mg Tablet
75 mg PO DAILY Qty: 90 0RF
Referrals:
Lolly Iqbal CRNP [Family Provider] - Call in 1-3 days for appt
Activity Restrictions/Additional Instructions:
As discussed, your blood work shows that you are dehydrated. Please increase your water intake to 8-8oz glasses daily. Your Troponin which is specific for the heart is normal. Your Chest x-ray is normal. Your Cervical spine shows that there are
degenerative change at C6/C7. Please follow up with the family doctor for further evaluation. You may use Tylenol 1000mg every 6 hour for pain. Try heat or ice to the neck and shoulder area. Follow up with the [facility] Building Architect as you have scheduled. IF
YOU HAVE INCREASED OR CHANGING PAIN, OR YOU HAVE ANY OTHER CONCERNS PLEASE RETURN TO THE EMERGENCY ROOM.
Interventions
Interventions:
*General Assessment Last Done: 04/22/24 19:45
Discharge Date and Time
Print Language: [id number]
[2024-04-22 20:43] LABS: NT-proBNP 204 pg/ml; Troponin I < 0.012 ng/ml
[2024-04-22] MEDS: TYLENOL 1000 MG PO (20:56)
[2024-04-22] MEDS: TORADOL 30 MG IV (20:56)
[2024-04-22 21:00] VITALS: BP 130/67
[2024-04-22 21:26] LABS: ALT (SGPT) 45 U/L (0-50); AST (SGOT) 37 U/L (17-59); Albumin 4.3 g/dl (3.5-5.0); Alkaline Phosphatase 94 U/L (38-126); Blood Urea Nitrogen 29 mg/dl (9-20); Calcium 8.8 mg/dl (8.4-10.2); Carbon Dioxide 20 mmol/L (22-30); Chloride 109 mmol/L (98-107); Glucose 108 mg/dl (70-99); Potassium 4.2 mmol/L (3.5-5.1); Sodium 141 mmol/L (135-145); Total Bilirubin 0.9 mg/dl (0.2-1.3); Total Protein 6.7 g/dl (6.3-8.2); eGFR 46.93
[2024-04-22 22:50] VITALS: BP 117/66
== END 2024-04-22 22:56 | disposition home or self-care (01) ==
LOC: EMR 19:37
PROVIDERS: EMERGENCY PHYSICIAN Emergency Medicine; FAMILY PHYSICIAN Nurse Practitioner Family
DX: M79.18 Myalgia, other site (principal); I10 Essential (primary) hypertension; Z87.891 Personal history of nicotine dependence
CPT/HCPCS: 99285; 96374; 71046; 72050; 80053; 83880; 84484; 85025; 93005

== ENCOUNTER → 2024-04-24 08:50 | Outpatient (REF) | payer MEDICARE, OTHER, SELFPAY | LOC: RAD 08:50 | PROVIDERS: ATTENDING PHYSICIAN Surgery Vascular Surgery; FAMILY PHYSICIAN Nurse Practitioner Family | DX: I70.1 Atherosclerosis of renal artery (principal) | CPT/HCPCS: 93975 ==

== ENCOUNTER → 2024-05-11 08:11 | Outpatient (REF) | payer MEDICARE, OTHER, SELFPAY | LOC: DHCBC/DCA 08:11 | PROVIDERS: ATTENDING PHYSICIAN Internal Medicine Cardiovascular Disease; FAMILY PHYSICIAN Nurse Practitioner Family | DX: I77.1 Stricture of artery (principal); I47.29 Other ventricular tachycardia; R94.31 Abnormal electrocardiogram [ECG] [EKG] | CPT/HCPCS: 78452; 93017; A9500 ==

== ENCOUNTER → 2024-05-11 14:53 | Outpatient (REF) | payer MEDICARE, OTHER, SELFPAY | LOC: DHSLP 14:53 | PROVIDERS: ATTENDING PHYSICIAN Internal Medicine Cardiovascular Disease; FAMILY PHYSICIAN Nurse Practitioner Family | DX: G47.30 Sleep apnea, unspecified (principal); R06.83 Snoring | CPT/HCPCS: 95800 ==

== ENCOUNTER → 2024-11-02 10:53 | Outpatient (REF) | payer MEDICARE, OTHER, SELFPAY | LOC: RAD 10:53 | PROVIDERS: ATTENDING PHYSICIAN Registered Nurse; FAMILY PHYSICIAN Nurse Practitioner Family | DX: I70.1 Atherosclerosis of renal artery (principal) | CPT/HCPCS: 93975 ==

== ENCOUNTER → 2024-11-04 08:55 | Outpatient (REF) | payer MEDICARE, OTHER, SELFPAY | LOC: RAD 08:55 | PROVIDERS: ATTENDING PHYSICIAN Registered Nurse; FAMILY PHYSICIAN Nurse Practitioner Family | DX: I77.1 Stricture of artery (principal) | CPT/HCPCS: 93923; 93930 ==

== ENCOUNTER → 2024-11-05 13:38 | Outpatient (REF) | payer MEDICARE, OTHER, SELFPAY ==
[2024-11-05 16:16] LABS: Blood Urea Nitrogen 20 mg/dl (9-20); Calcium 9.1 mg/dl (8.4-10.2); Carbon Dioxide 20 mmol/L (22-30); Chloride 112 mmol/L (98-107); Glucose 121 mg/dl (70-99); Potassium 4.3 mmol/L (3.5-5.1); Sodium 140 mmol/L (135-145); eGFR 50.71
== END ==
LOC: HWLAB 13:38
PROVIDERS: ATTENDING PHYSICIAN Surgery Vascular Surgery; FAMILY PHYSICIAN Nurse Practitioner Family
DX: I70.1 Atherosclerosis of renal artery (principal); Z98.890 Other specified postprocedural states
CPT/HCPCS: 36415; 80048

== ENCOUNTER → 2024-11-05 16:44 | Outpatient (REF) | payer MEDICARE, OTHER, SELFPAY | LOC: RAD 16:44 | PROVIDERS: ATTENDING PHYSICIAN Surgery Vascular Surgery; FAMILY PHYSICIAN Nurse Practitioner Family | DX: I70.1 Atherosclerosis of renal artery (principal); Z98.890 Other specified postprocedural states | CPT/HCPCS: 74174; Q9967 ==

== ENCOUNTER → 2025-04-20 06:46 | Outpatient (REF) | payer MEDICARE, OTHER, SELFPAY | LOC: RAD 06:46 | PROVIDERS: ATTENDING PHYSICIAN Registered Nurse; FAMILY PHYSICIAN Nurse Practitioner Family; REFERRING PHYSICIAN Internal Medicine | DX: I70.1 Atherosclerosis of renal artery (principal); I77.1 Stricture of artery | CPT/HCPCS: 93923; 93930; 93975 ==